=== PATIENT | female | born 1975 | race Caucasian/White ===

== ENCOUNTER 2022-04-03 10:58 | Emergency (ER) | payer OTHER, SELFPAY ==
--- NOTE | ~2022-04-03 | XR_ITS ---
EXAMINATION: XR chest 2V CLINICAL INFORMATION: Shortness of breath COMPARISON: No prior chest x-ray available in our system for comparison at the time of this dictation. TECHNIQUE: XR chest 2V Lungs and Nivia: Both lungs are clear. Pleura: Normal. Costophrenic angles are sharp. No pneumothorax. Heart: The heart is normal in size. Mediastinum: The mediastinum is within normal limits.. Bones: Skeletal structures included are normal for patient's age. XR/XR chest 2V IMPRESSION: No radiographic evidence of acute cardiopulmonary disease.
[2022-04-03 11:05] VITALS: BP 194/100; PULSE 141; RESP 18; TEMP 36.5; O2SAT 97; BMI 39.8
--- NOTE | 2022-04-03 11:09 | ECG_ITS ---
Test Reason : difficuty breathing Blood Pressure : / mmHG Vent. Rate : 136 BPM Atrial Rate : 136 BPM P-R Int : 126 ms QRS Dur : 076 ms QT Int : 300 ms P-R-T Axes : 076 052 056 degrees QTc Int : 451 ms Sinus tachycardia Nonspecific ST abnormality Abnormal ECG No previous ECGs available Referred By: Sonja Ocampo Electronically Signed By:MARSHA WELLINGTON MD
--- NOTE | 2022-04-03 11:20 | ED_ITS ---
HPI - General Adult General Chief complaint: General Medical <ANTONIO Bustillo - Last Filed: 04/03/22 11:22> Stated complaint: diff breathing heart rate 140 <ANTONIO Bustillo - Last Filed: 04/03/22 11:22> Time Seen by Provider: 04/03/22 15:27 <ANTONIO Bustillo - Last Filed: 04/03/22 11:22> Source: patient <ANTONIO Mckeon - Last Filed: 04/03/22 16:43> Mode of arrival: ambulatory <ANTONIO Mckeon - Last Filed: 04/03/22 16:43> Limitations: no limitations <ANTONIO Mckeon Last Filed: 04/03/22 16:43> History of Present Illness HPI narrative: 46-year-old female who was recently diagnosed with COVID on 03/20/2022 who is presenting to the ER with at bedside after being sent from the Urgent Care with difficulty breathing and shortness of breath, dizziness with exertion along with being tachycardic and hypertensive. She reports that she went to the urgent care due to persistent shortness of breath/cough since she was diagnosed with COVID. Reports that she finished a Z-Soham and a course of steroids and she is also try Mucinex and no symptomatic relief. She was also diagnosed with high blood pressure a month and a half ago although did not start the blood pressure medication that her primary care provider prescribed to her. She also was noted to be tachycardic in the Urgent Care therefore they were concerned for possible blood clot. Patient denies any dizziness at this time, neck pain/stiffness, sputum production, chest pain, orthopnea, palpitations, paresthesias, nausea/vomiting/diarrhea, abdominal pain, lower extremity edema or calf tenderness or any other symptoms complaints or concerns at this time. <ANTONIO Mckeon - Last Filed: 04/03/22 16:43> MD complaint: Persistent cough with shortness of breath since 03/20/2022 <ANTONIO Mckeon - Last Filed: 04/03/22 16:43> Onset (ago): week(s) (2) <ANTONIO Mckeon Last Filed: 04/03/22 16:43> Related Data Home medications: Previous Rx's Medication Instructions Recorded albuterol sulfate 90 mcg/actuation 1 inh inhalation QID PRN shortness 02/02/22 aerosol inhaler (Ventolin HFA) of breath or wheezing 30 days #8.5 grams lisinopril 10 mg tablet 10 mg PO DAILY 30 days #30 tabs 02/02/22 triamcinolone acetonide 0.5 % 1 appl topical BID 14 days #45 02/02/22 topical cream grams codeine 10 mg-guaifenesin 100 mg/5 5 ml PO Q6H PRN cold symptoms #120 04/03/22 mL oral liquid (Guaifenesin AC) mL prednisone 20 mg tablet 40 mg PO DAILY inflammation 5 days 04/03/22 #10 tabs <ANTONIO Bustillo - Last Filed: 04/03/22 11:22> Allergies/adverse reactions: Allergies Allergy/AdvReac Type Severity Reaction Status Date / Time No Known Allergies Allergy Unknown Verified 02/02/22 14:18 <ANTONIO Bustillo - Last Filed: 04/03/22 11:22> Review of Systems Review of Systems: Constitutional : No Weight loss, No Fever, No Chills, No Night Sweats, No Fatigue, No Malaise ENT/Mouth : No Hearing loss, No Ear Pain, No Nasal Congestion, No Sinus Pain, No Hoarseness, No sore throat, No Rhinorrhea, No Swallowing Difficulty Eyes: No Eye Pain, No Swelling, No Redness, No Foreign Body, No Discharge, No Vision Changes Cardiovascular : No Chest Pain, + SOB, No Dyspnea on Exertion, No Orthopnea, No Edema, No Palpitations Respiratory : + Cough, No Sputum, No Wheezing, No Smoke Exposure, No Dyspnea Gastrointestinal : No Nausea, No Vomiting, No Diarrhea, No Constipation, No abdominal Pain, No Hematochezia, No Melena Genitourinary : no irregular bleeding, No Dysuria, No Urinary Frequency, No Hematuria, No Urinary Incontinence, No Urgency, No Flank Pain, No Urinary Flow Changes, No Hesitancy Musculoskeletal : No joint pain, No Myalgias, No Joint Swelling Skin : No Skin Lesions, No rash Neuro : No Weakness, No Numbness, No Paresthesias, No Loss of Consciousness, No Dizziness, No Headache Psych : No Anxiety/Panic, No Depression, No SI/HI/AH/VH, No Social Issues, Heme/Lymph: No Bruising, No Bleeding,No Lymphadenopathy Endocrine : No Polyuria, No Polydipsia, No Temperature Intolerance <ANTONIO Mckeon Last Filed: 04/03/22 16:43> Yes all other systems are reviewed and are negative <ANTONIO Mckeon - Last Filed: 04/03/22 16:43> [facility] Past Medical History Attestation statement: The following information was validated with the patient. <ANTONIO Mckeon - Last Filed: 04/03/22 16:43> Source: old records reviewed and nursing notes reviewed <ANTONIO Mckeon - Last Filed: 04/03/22 16:43> Social History Social History: Social History Patient Tobacco Use Status: Never used Tobacco e-Cigarette/Vaping Use: Never Used Second Hand Smoke Exposure: No Advance Directives: No Advance Directives Information Provided: Yes Current occupational status: employed Current occupational exposures/hazards: No Cognitive needs: No Hearing needs: No Vision needs: No <ANTONIO Bustillo - Last Filed: 04/03/22 11:22> Physical Exam ED Vital Signs: Vital Signs - 24 hr 04/03/22 11:05 04/03/22 16:30 Temperature 97.7 F Pulse Rate 141 H 108 H Respiratory Rate 18 17 Blood Pressure 194/100 H 155/86 H Pulse Oximetry 97 98 Oxygen Delivery Method Room Air Room Air BMI result Body Mass Index 39.8 <ANTONIO Bustillo - Last Filed: 04/03/22 11:22> Vital Signs - 24 hr 04/03/22 11:05 04/03/22 16:30 Temperature 97.7 F Pulse Rate 141 H 108 H Respiratory Rate 18 17 Blood Pressure 194/100 H 155/86 H Pulse Oximetry 97 98 Oxygen Delivery Method Room Air Room Air BMI result Body Mass Index 39.8 vital signs have been reviewed as normal and appeared to be correct. Blood pressure 194/101. Heart rate 141 Respiration rate normal. Temperature normal. Oxygen saturation normal. <ANTONIO Mckeon Last Filed: 04/03/22 16:43> Appearance: Alert. Oriented X3. No acute distress. Head: Normal external exam. Normocephalic. Atraumatic. Eyes: PERRLA. EOMI. Conjunctiva and sclera normal. Eyelids normal. ENT: EAC normal. TM's Normal. Pharynx normal. Uvula midline. Moist mucous membr anes. No lesions/ulcerations or masses noted on the tongue. Normal voice. No trismus noted. No drooling noted. No muffled voice noted. Neck: Normal inspection. Neck supple. FROM. No adenopathy. Thyroid Normal. No tracheal deviation noted. No crepitus is noted. No meningeal signs. No neck mass noted. No signs of trauma noted. CVS: Normal heart rate and rhythm. Heart sound normal. Pulses normal throughout. No murmurs/rales/gallops. Respiratory: No respiratory distress. Painless inspiration. Breath sounds normal. No wheezes/rales/rhonchi noted. Chest nontender. No crepitus is noted. No signs of trauma noted. No accessory muscle usage noted or decreased air movement noted. No signs of trauma. Abdomen: Soft and nontender. Bowel sounds normal in all 4 quadrants. No distention noted. No organomegaly noted. No visible injury noted. Back: Full range of motion noted. Skin: Skin warm and dry. Normal skin color. Normal skin turgor. No rashes/lesions/lacerations noted. Extremities: No lower extremity edema. No calf tenderness is noted. Extremities exhibit normal range of motion and nontender. Neuro: Oriented X 3. No motor deficit. No sensory deficit. Reflexes normal. Normal steady gait. No focal neuro deficits noted. CN's II-XII intact bilaterally? Vascular: + radial pulses/+ 2 distal pedal pulses/+2 dorsalis pedis b/l. Normal cap refill. No cyanosis noted to upper extremity nails and lower extremity toes nails. <ANTONIO Mckeon - Last Filed: 04/03/22 16:43> Course Course Course Narrative: RME - 46 yo female with hx COVID dx 03/20 presents to the ER from Urgent Care w/ difficulty breathing and SOB, dizziness with exertion. Tachycardic and hypertensive, SPO2 97% in triage. Will need to r/o PE - DDIMER, CXR, EKG and labs ordered. <ANTONIO Bustillo - Last Filed: 04/03/22 11:22> Reevaluation(s) Reevaluation #1: 46-year-old female who was recently diagnosed with COVID on 03/20/2022 who is presenting to the ER with at bedside after being sent from the Urgent Care with difficulty breathing and shortness of breath, dizziness with exertion along with being tachycardic and hypertensive. She reports that she went to the urgent care due to persistent shortness of breath/cough since she was diagnosed with COVID. Reports that she finished a Z-Soham and a course of steroids and she is also try Mucinex and no symptomatic relief. She was also diagnosed with high blood pressure a month and a half ago although did not start the blood pressure medication that her primary care provider prescribed to her. She also was noted to be tachycardic in the Urgent Care therefore they were concerned for possible blood clot. Labs obtained patient with leukocytosis of 14,000. Platelet count 832089. Random glucose 297. Total protein 8.1. Otherwise all other labs including D- dimer troponin negative. COVID negative. Chest x-ray within normal limits. EKG is sinus tachycardia with ventricular rate of [address] abnormalities no acute ischemic change are noted. No prior EKGs to compare to at this time. Therefore patient does not have any evidence of a PE or DVT due to negative D- dimer and no lower extremity edema or calf tenderness. Not consistent with ACS as patient denies any chest pain and her EKG and cardiac enzymes are normal. Her tachycardic has improved it is now 108. I gave her albuterol inhaler with a spacer and she was educated on proper usage. Will DC home with some cough medicine a course of steroids for possible bronchitis from the COVID and ins tructions return if any new worsening symptoms follow up with primary care provider and to start taking her blood pressure medication as prescribed. Patient understands agrees with this plan. <ANTONIO Mckeon - Last Filed: 04/03/22 16:43> Time: 16:42 <ANTONIO Mckeon - Last Filed: 04/03/22 16:43> Medications Administered Discontinued Medications Generic Name Dose Route Start Last Admin Trade Name Freq PRN Reason Stop Dose Admin Albuterol Sulfate 2 puff 04/03/22 15:34 04/03/22 16:11 Albuterol Sulfate 90 Mcg 8 Gm Inhaler INHALE 04/03/22 15:35 2 puff ONCE ONE Administration <ANTONIO Bustillo - Last Filed: 04/03/22 11:22> Medications Administered Discontinued Medications Generic Name Dose Route Start Last Admin Trade Name Linda PRN Reason Stop Dose Admin Albuterol Sulfate 2 puff 04/03/22 15:34 04/03/22 16:11 Albuterol Sulfate 90 Mcg 8 Gm Inhaler INHALE 04/03/22 15:35 2 puff ONCE ONE Administration <ANTONIO Mckeon - Last Filed: 04/03/22 16:43> Medical Decision Making Lab Data MDM Lab Attestation statement: I reviewed the patient's lab results. <ANTONIO Mckeon - Last Filed: 04/03/22 16:43> Result Diagrams: 04/03/22 11:28 04/03/22 11:28 <ANTONIO Bustillo - Last Filed: 04/03/22 11:22> Labs: Lab Results 04/03/22 04/03/22 04/03/22 Range/Units 11:28 11:28 11:28 WBC 14.4 H (4.8-10.8) X10*3/uL RBC 5.23 (4.20-5.50) X10*6/uL Hgb 14.5 (12.0-16.0) g/dl Hct 44.0 (37.0-47.0) % MCV 84.1 (80.0-98.0) fL MCH 27.7 (27.0-33.0) pg MCHC 33.0 (31.0-35.0) g/dl RDW 12.4 (11.0-16.0) % Plt Count 409 H (160-400) X10*3/uL MPV 9.4 (9.4-12.3) fL Immature Gran % (Auto) 1.1 H (0.0-0.4) % Neut % (Auto) 83.5 H (45-73) % Lymph % (Auto) 12.2 L (20-40) % Wetzel % (Auto) 2.9 (2-11) % Eos % (Auto) 0.0 (0-4) % Baso % (Auto) 0.3 (0-2) % Lymph # (Auto) 1.8 (1.2-4.9) X10*3/uL Wetzel # (Auto) 0.4 (0.1-1.2) X10*3/uL Eos # (Auto) 0.0 (0.0-0.4) X10*3/uL Baso # (Auto) 0.0 (0.0-0.2) X10*3/uL Abs Immat Gran (auto) 0.16 H (0.00-0.03) X10*3/uL Absolute Neuts (auto) 12.0 H (2.0-8.3) x10*3/uL Absolute Nucleated RBC 0.000 (0.0-0.012) X10*3/uL Nucleated RBC % (auto) 0.0 (0.0-0.2) /100WBC PT 10.6 (10.0-13.1) SEC INR 0.9 (0.9-1.1) APTT 32.6 (26.0-36.4) SEC D-Dimer High Sensitivty < 150 NG/ML Sodium 137 (135-145) mmol/L Potassium 4.7 (3.3-5.1) mmol/L Chloride 99 (96-108) mmol/L Carbon Dioxide 26 (22-29) mmol/L Anion Gap 17 (12-20) BUN 12 (9-16) mg/dL Creatinine 0.80 (0.5-1.4) mg/dL Estim Creat Clear Calc 101.2 Estimated GFR > 60 Random Glucose 297 H (60-115) mg/dL Calcium 9.7 (8.4-10.2) mg/dL Magnesium 1.6 (1.6-2.6) mg/dL Total Bilirubin 0.4 (0.0-1.0) mg/dL Direct Bilirubin < 0.2 (0.0-0.5) mg/dL AST 16 (5-31) U/L ALT 23 (0-31) U/L Alkaline Phosphatase 62 (39-117) U/L Troponin I High Sens (<3.5-17.0) ng/L Total Protein 8.1 H (6.5-8.0) g/dL Albumin 4.6 (3.5-5.0) g/dL COVID-19 (JESSICA) (Negative) COVID-19 Clin Com 04/03/22 04/03/22 Range/Units 11:28 11:28 WBC (4.8-10.8) X10*3/uL RBC (4.20-5.50) X10*6/uL Hgb (12.0-16.0) g/dl Hct (37.0-47.0) % MCV (80.0-98.0) fL MCH (27.0-33.0) pg MCHC (31.0-35.0) g/dl RDW (11.0-16.0) % Plt Count (160-400) X10*3/uL MPV (9.4-12.3) fL Immature Gran % (Auto) (0.0-0.4) % Neut % (Auto) (45-73) % Lymph % (Auto) (20-40) % Wetzel % (Auto) (2-11) % Eos % (Auto) (0-4) % Baso % (Auto) (0-2) % Lymph # (Auto) (1.2-4.9) X10*3/uL Wetzel # (Auto) (0.1-1.2) X10*3/uL Eos # (Auto) (0.0-0.4) X10*3/uL Baso # (Auto) (0.0-0.2) X10*3/uL Abs Immat Gran (auto) (0.00-0.03) X10*3/uL Absolute Neuts (auto) (2.0-8.3) x10*3/uL Absolute Nucleated RBC (0.0-0.012) X10*3/uL Nucleated RBC % (auto) (0.0-0.2) /100WBC PT (10.0-13.1) SEC INR (0.9-1.1) APTT (26.0-36.4) SEC D-Dimer High Sensitivty NG/ML Sodium (135-145) mmol/L Potassium (3.3-5.1) mmol/L Chloride (96-108) mmol/L Carbon Dioxide (22-29) mmol/L Anion Gap (12-20) BUN (9-16) mg/dL Creatinine (0.5-1.4) mg/dL Estim Creat Clear Calc Estimated GFR Random Glucose (60-115) mg/dL Calcium (8.4-10.2) mg/dL Magnesium (1.6-2.6) mg/dL Total Bilirubin (0.0-1.0) mg/dL Direct Bilirubin (0.0-0.5) mg/dL AST (5-31) U/L ALT (0-31) U/L Alkaline Phosphatase (39-117) U/L Troponin I High Sens < 3.5 (<3.5-17.0) ng/L Total Protein (6.5-8.0) g/dL Albumin (3.5-5.0) g/dL COVID-19 (JESSICA) Negative (Negative) COVID-19 Clin Com See Note <ANTONIO Bustillo - Last Filed: 04/03/22 11:22> Lab Results 04/03/22 04/03/22 04/03/22 Range/Units 11:28 11:28 11:28 WBC 14.4 H (4.8-10.8) X10*3/uL RBC 5.23 (4.20-5.50) X10*6/uL Hgb 14.5 (12.0-16.0) g/dl Hct 44.0 (37.0-47.0) % MCV 84.1 (80.0-98.0) fL MCH 27.7 (27.0-33.0) pg MCHC 33.0 (31.0-35.0) g/dl RDW 12.4 (11.0-16.0) % Plt Count 409 H (160-400) X10*3/uL MPV 9.4 (9.4-12.3) fL Immature Gran % (Auto) 1.1 H (0.0-0.4) % Neut % (Auto) 83.5 H (45-73) % Lymph % (Auto) 12.2 L (20-40) % Wetzel % (Auto) 2.9 (2-11) % Eos % (Auto) 0.0 (0-4) % Baso % (Auto) 0.3 (0-2) % Lymph # (Auto) 1.8 (1.2-4.9) X10*3/uL Wetzel # (Auto) 0.4 (0.1-1.2) X10*3/uL Eos # (Auto) 0.0 (0.0-0.4) X10*3/uL Baso # (Auto) 0.0 (0.0-0.2) X10*3/uL Abs Immat Gran (auto) 0.16 H (0.00-0.03) X10*3/uL Absolute Neuts (auto) 12.0 H (2.0-8.3) x10*3/uL Absolute Nucleated RBC 0.000 (0.0-0.012) X10*3/uL Nucleated RBC % (auto) 0.0 (0.0-0.2) /100WBC PT 10.6 (10.0-13.1) SEC INR 0.9 (0.9-1.1) APTT 32.6 (26.0-36.4) SEC D-Dimer High Sensitivty < 150 NG/ML Sodium 137 (135-145) mmol/L Potassium 4.7 (3.3-5.1) mmol/L Chloride 99 (96-108) mmol/L Carbon Dioxide 26 (22-29) mmol/L Anion Gap 17 (12-20) BUN 12 (9-16) mg/dL Creatinine 0.80 (0.5-1.4) mg/dL Estim Creat Clear Calc 101.2 Estimated GFR > 60 Random Glucose 297 H (60-115) mg/dL Calcium 9.7 (8.4-10.2) mg/dL Magnesium 1.6 (1.6-2.6) mg/dL Total Bilirubin 0.4 (0.0-1.0) mg/dL Direct Bilirubin < 0.2 (0.0-0.5) mg/dL AST 16 (5-31) U/L ALT 23 (0-31) U/L Alkaline Phosphatase 62 (39-117) U/L Troponin I High Sens (<3.5-17.0) ng/L Total Protein 8.1 H (6.5-8.0) g/dL Albumin 4.6 (3.5-5.0) g/dL COVID-19 (JESSICA) (Negative) COVID-19 Clin Com 04/03/22 04/03/22 Range/Units 11:28 11:28 WBC (4.8-10.8) X10*3/uL RBC (4.20-5.50) X10*6/uL Hgb (12.0-16.0) g/dl Hct (37.0-47.0) % MCV (80.0-98.0) fL MCH (27.0-33.0) pg MCHC (31.0-35.0) g/dl RDW (11.0-16.0) % Plt Count (160-400) X10*3/uL MPV (9.4-12.3) fL Immature Gran % (Auto) (0.0-0.4) % Neut % (Auto) (45-73) % Lymph % (Auto) (20-40) % Wetzel % (Auto) (2-11) % Eos % (Auto) (0-4) % Baso % (Auto) (0-2) % Lymph # (Auto) (1.2-4.9) X10*3/uL Wetzel # (Auto) (0.1-1.2) X10*3/uL Eos # (Auto) (0.0-0.4) X10*3/uL Baso # (Auto) (0.0-0.2) X10*3/uL Abs Immat Gran (auto) (0.00-0.03) X10*3/uL Absolute Neuts (auto) (2.0-8.3) x10*3/uL Absolute Nucleated RBC (0.0-0.012) X10*3/uL Nucleated RBC % (auto) (0.0-0.2) /100WBC PT (10.0-13.1) SEC INR (0.9-1.1) APTT (26.0-36.4) SEC D-Dimer High Sensitivty NG/ML Sodium (135-145) mmol/L Potassium (3.3-5.1) mmol/L Chloride (96-108) mmol/L Carbon Dioxide (22-29) mmol/L Anion Gap (12-20) BUN (9-16) mg/dL Creatinine (0.5-1.4) mg/dL Estim Creat Clear Calc Estimated GFR Random Glucose (60-115) mg/dL Calcium (8.4-10.2) mg/dL Magnesium (1.6-2.6) mg/dL Total Bilirubin (0.0-1.0) mg/dL Direct Bilirubin (0.0-0.5) mg/dL AST (5-31) U/L ALT (0-31) U/L Alkaline Phosphatase (39-117) U/L Troponin I High Sens < 3.5 (<3.5-17.0) ng/L Total Protein (6.5-8.0) g/dL Albumin (3.5-5.0) g/dL COVID-19 (JESSICA) Negative (Negative) COVID-19 Clin Com See Note <ANTONIO Mckeon - Last Filed: 04/03/22 16:43> Independent Interpretation I performed an independent interpretation of an: EKG (Sinus tachycardia ventricular [address] abnormalities no acute ischemic change are noted. No prior EKGs to compare to at this time.) and Plain X-Ray (I reviewed the x-ray results with the patient and at bed) <ANTONIO Mckeon - Last Filed: 04/03/22 16:43> Radiology Impression Discussion of test interpretation with radiology: I have reviewed the radiologist's reading. <ANTONIO Mckeon - Last Filed: 04/03/22 16:43> Radiologist Impression: EXAMINATION: XR chest 2V CLINICAL INFORMATION: Shortness of breath COMPARISON: No prior chest x-ray available in our system for comparison at the time of this dictation.? TECHNIQUE: XR chest 2V Lungs and Nivia: Both lungs are clear. Pleura: Normal. Costophrenic angles are sharp. No pneumothorax. Heart: The heart is normal in size. Mediastinum: The mediastinum is within normal limits.. Bones: Skeletal structures included are normal for patient's age. XR/XR chest 2V IMPRESSION: No radiographic evidence of acute cardiopulmonary disease. <ANTONIO Mckeon Last Filed: 04/03/22 16:43> Independent Historian Clinical information obtained from an independent historian. History obtained from or confirmed by: Spouse <ANTONIO Mckeon Last Filed: 04/03/22 16:43> Chronic Conditions Patient?s care impacted by: Hypertension <ANTONIO Mckeon Last Filed: 04/03/22 16:43> Critical Care Time Critical Care Time Critical Care Time: Yes <ANTONIO Mckeon - Last Filed: 04/03/22 16:43> Total Critical Care Time: 60 <ANTONIO Mckeon - Last Filed: 04/03/22 16:43> Attestation: I personally attest to this time spent taking care of the patient <ANTONIO Mckeon - Last Filed: 04/03/22 16:43> Discharge Plan Discharge Clinical Impression: Bronchitis <ANTONIO Bustillo - Last Filed: 04/03/22 11:22> Patient Disposition: Home, Self-Care <ANTONIO Bustillo - Last Filed: 04/03/22 11:22> Instructions: Acute Bronchitis (ED) <ANTONIO Bustillo - Last Filed: 04/03/22 11:22> Prescriptions: New prednisone 20 mg tablet 40 mg PO DAILY 5 Days Qty: 10 0RF codeine-guaifenesin [Guaifenesin AC] 10-100 mg/5 mL liquid 5 ml PO Q6H PRN (Reason: cold symptoms) Qty: 120 0RF No Action triamcinolone acetonide 0.5 % cream 1 appl topical BID 14 Days Qty: 45 1RF lisinopril 10 mg tablet 10 mg PO DAILY 30 Days Qty: 30 2RF albuterol sulfate [Ventolin HFA] 90 mcg/actuation HFA aerosol inhaler 1 inh inhalation QID PRN (Reason: shortness of breath or wheezing) 30 Days Qty: 8.5 1RF <ANTONIO Bustillo - Last Filed: 04/03/22 11:22> Referrals: Pancho Ramos MD [Primary Care Provider] - 2 days <ANTONIO Bustillo - Last Filed: 04/03/22 11:22> Stand Alone Forms: Work/School Release <ANTONIO Bustillo - Last Filed: 04/03/22 11:22>
[2022-04-03 11:34] LABS: MANUAL DIFF FLAG NO
[2022-04-03 11:35] LABS: Basophils Percent Auto 0.3 % (0-2); Hemoglobin 14.5 g/dl (12.0-16.0); Imm Gran Abs Auto 0.16 X10*3/uL (0.00-0.03); Imm Gran Pct Auto 1.1 % (0.0-0.4); Lymphocytes Absolute Auto 1.8 X10*3/uL (1.2-4.9); Lymphocytes Percent Auto 12.2 % (20-40); Mean Corpuscular Hemoglobin 27.7 pg (27.0-33.0); Mean Corpuscular Volume 84.1 fL (80.0-98.0); Mean Platelet Volume 9.4 fL (9.4-12.3); Monocytes Absolute Auto 0.4 X10*3/uL (0.1-1.2); Monocytes Percent Auto 2.9 % (2-11); Neutrophils Percent Auto 83.5 % (45-73); Platelet Count 409 X10*3/uL (160-400); Red Blood Count 5.23 X10*6/uL (4.20-5.50); Red Cell Distribution Width 12.4 % (11.0-16.0); White Blood Count 14.4 X10*3/uL (4.8-10.8)
[2022-04-03 11:41] LABS: INTERNATIONAL NORM RATIO 0.9 (0.9-1.1); Prothrombin Time 10.6 SEC (10.0-13.1)
[2022-04-03 11:43] LABS: Partial Thromboplastin Time 32.6 SEC (26.0-36.4)
[2022-04-03 11:47] LABS: D Dimer High Sensitivity < 150 NG/ML
[2022-04-03 11:50] LABS: Alanine Aminotransferase 23 U/L (0-31); Albumin Level 4.6 g/dL (3.5-5.0); Alkaline Phosphatase 62 U/L (39-117); Anion Gap 17 (12-20); Aspartate Amino Transferase 16 U/L (5-31); Bilirubin Direct < 0.2 mg/dL (0.0-0.5); Bilirubin Total 0.4 mg/dL (0.0-1.0); Blood Urea Nitrogen 12 mg/dL (9-16); Calcium 9.7 mg/dL (8.4-10.2); Carbon Dioxide 26 mmol/L (22-29); Chloride 99 mmol/L (96-108); Creatinine Clr Calc Pharmacy 101.2; Estimated Glomerular Filt Rate > 60; Glucose Random 297 mg/dL (60-115); Magnesium 1.6 mg/dL (1.6-2.6); Potassium 4.7 mmol/L (3.3-5.1); Sodium 137 mmol/L (135-145); Total Protein 8.1 g/dL (6.5-8.0)
[2022-04-03 11:53] LABS: COVID-19 Test Negative (Negative); IDNOW Serial# 55D5AD1C
[2022-04-03 11:56] LABS: Troponin-I High Sensitivity < 3.5 ng/L (<3.5-17.0)
[2022-04-03] MEDS: Albuterol Sulfate 90 MCG 8 GM INHALER 2 PUFF INHALE (16:11)
[2022-04-03 16:30] VITALS: BP 155/86; PULSE 108; RESP 17; O2SAT 98
== END 2022-04-03 16:43 | disposition home or self-care (01) ==
PROVIDERS: Physician Assistant; Emergency Provider Emergency Medicine; PCP Family Medicine
DX: J40 Bronchitis, not specified as acute or chronic (principal); R06.02 Shortness of breath; Z20.822 Contact with and (suspected) exposure to COVID-19; I10 Essential (primary) hypertension; R00.0 Tachycardia, unspecified; Z79.899 Other long term (current) drug therapy
CPT/HCPCS: 36415; 71046; 80048; 80076; 83735; 84484; 85025; 85379; 85610; 85730; 87635; 93005; 99284

== ENCOUNTER 2022-06-03 08:25 | Outpatient (REF) | payer OTHER, SELFPAY ==
[2022-06-03 11:07] LABS: MANUAL DIFF FLAG NO
[2022-06-03 11:17] LABS: Basophils Percent Auto 0.4 % (0-2); Eosinophils Absolute Auto 0.4 X10*3/uL (0.0-0.4); Eosinophils Percent Auto 3.3 % (0-4); Hematocrit 41.3 % (37.0-47.0); Hemoglobin 13.4 g/dl (12.0-16.0); Imm Gran Abs Auto 0.09 X10*3/uL (0.00-0.03); Imm Gran Pct Auto 0.9 % (0.0-0.4); Lymphocytes Absolute Auto 2.6 X10*3/uL (1.2-4.9); Lymphocytes Percent Auto 24.5 % (20-40); Mean Corpuscular HGB Conc 32.4 g/dl (31.0-35.0); Mean Corpuscular Hemoglobin 28.8 pg (27.0-33.0); Mean Corpuscular Volume 88.6 fL (80.0-98.0); Mean Platelet Volume 10.2 fL (9.4-12.3); Monocytes Absolute Auto 0.6 X10*3/uL (0.1-1.2); Monocytes Percent Auto 5.3 % (2-11); Neutrophils Absolute Auto 6.9 x10*3/uL (2.0-8.3); Neutrophils Percent Auto 65.6 % (45-73); Platelet Count 323 X10*3/uL (160-400); Red Blood Count 4.66 X10*6/uL (4.20-5.50); Red Cell Distribution Width 12.4 % (11.0-16.0); White Blood Count 10.5 X10*3/uL (4.8-10.8)
[2022-06-03 11:27] LABS: Appearance Urine Clear; Color Urine Yellow; Glucose Urine UA Negative (Negative); Leukocyte Esterase Urine Negative (Negative); Nitrite Urine Negative (Negative); PH 7.5 (5.0-9.0); Urine Blood Negative (Negative); Urine Ketones Negative (Negative); Urine Protein Negative (Neg-Trace)
[2022-06-03 12:19] LABS: Alanine Aminotransferase 18 U/L (0-31); Alkaline Phosphatase 55 U/L (39-117); Anion Gap 13 (12-20); Aspartate Amino Transferase 13 U/L (5-31); Bilirubin Total 0.4 mg/dL (0.0-1.0); Blood Urea Nitrogen 12 mg/dL (9-16); Calcium 9.2 mg/dL (8.4-10.2); Carbon Dioxide 28 mmol/L (22-29); Chloride 101 mmol/L (96-108); Cholesterol 231 mg/dL; Estimated Glomerular Filt Rate > 60; Glucose Fasting 189 mg/dL (60-99); HDL Cholesterol 48 mg/dL; Potassium 4.3 mmol/L (3.3-5.1); Sodium 138 mmol/L (135-145); Total Protein 6.9 g/dL (6.5-8.0)
[2022-06-03 16:01] LABS: LDL Cholesterol Calculated 158 mg/dl; Triglycerides 128 mg/dL
[2022-06-03 17:55] LABS: Creatinine Urine 119.72 mg/dL; Microalbum/Creatinine Ratio Ur 11.6 ug/mg cr
== END 2022-06-03 08:26 | disposition home or self-care (01) ==
LOC: HO.HMGCLDS 08:25
PROVIDERS: PCP Family Medicine; Visit Provider Family Medicine
DX: Z00.00 Encounter for general adult medical examination without abnormal findings (principal); I10 Essential (primary) hypertension
CPT/HCPCS: 36415; 80053; 80061; 81003; 82043; 84443; 85025

== ENCOUNTER 2022-07-17 12:20 | Outpatient (REF) | payer OTHER, SELFPAY ==
[2022-07-17 13:19] LABS: Estimated Average Glucose 180 mg/dL; Hemoglobin A1c % 7.9 %
== END 2022-07-17 12:21 | disposition home or self-care (01) ==
LOC: HO.LAB 12:20
PROVIDERS: PCP Family Medicine; Visit Provider Family Medicine
DX: R73.01 Impaired fasting glucose (principal)
CPT/HCPCS: 36415; 83036

== ENCOUNTER 2022-10-12 08:47 | Outpatient (AMB) | payer OTHER, SELFPAY ==
[2022-10-12 08:51] VITALS: BP 122/70; PULSE 100; O2SAT 99; BMI 40.2
--- NOTE | 2022-10-12 08:51 | MHC.PC.OV ---
Vital Signs 10/12/22 08:51 Height 5 ft 3 in Weight 227 lb BMI 40.2 BP 122/70 Blood Pressure Location Lt brachial Position Sitting Pulse 100 Pulse Source Pulse Oximeter Pulse Oximetry (%) 99 Oxygen Delivery Method Room Air Intake Visit Reasons: f/u diabetes Intake Note: Patient is here to follow up on diabetes, and non stop chronic cough, and right foot cramping. Allergies No Known Allergies Allergy (Unknown, Verified 10/12/22 08:54) Tobacco use date assessed: 10/12/22 Dental Screening Dental Screen Date: 10/12/22 Did you have a dental visit in the last 12 months?: Yes Did you have a dental problem in the last 6 months where you did not have access to dental care?: No Was dental information given to patient?: Patient declined HPI f/u diabetes HPI Details 46 y/o female presents to f/u diabetes. Had started her on metformin. Made referral to nurse navigator for diabetic teaching. A1c today 10/12/22 is 7.9%, which is unchanged from prior. She reports she continues to take metformin 500mg daily. She notes she could improve her diet. She reports an ongoing cough. Chest x-ray in March had been fine. Blood pressure today is 122/70. She is on lisinopril 10mg daily. HPI Comments History of Present Illness Details Documentation assistance for Pancho Ramos MD, was provided by Esteban Moncada, Marketing Programs Specialist on 10/12/2022 9:15 AM EST. I, Dr. Ramos, have read, observed, and verified documentation. [facility] Surgical History No pertinent past surgical history Family History Mother Asthma Thyroid disorder Father Asthma Maternal Grandmother Asthma Diabetes mellitus Paternal Grandmother Diabetes mellitus Social History Household Members Other:: Patient has 1 son Housing: House Patient Tobacco Use Status: Never used Tobacco e-Cigarette/Vaping Use: Never Used Second Hand Smoke Exposure: No service: No Current occupational status: employed Current occupational exposures/hazards: No Cognitive needs: No Hearing needs: No Vision needs: No Questionnaire PHQ-9 Over the last 2 weeks, how often have you been bothered by any of the following problems? 1. Little interest or pleasure in doing things: not at all 2. Feeling down, depressed, or hopeless: not at all 3. Trouble falling or staying asleep, or sleeping too much: not at all 4. Feeling tired or having little energy: not at all 5. Poor appetite or overeating: not at all 6. Feeling bad about yourself - or that you are a failure or have let yourself or your family down: not at all 7. Trouble concentrating on things, such as reading the newspaper or watching television: not at all 8. Moving or speaking so slowly that other people could have noticed. Or the opposite - being so fidgety or restless that you have been moving around a lot more than usual: not at all 9. Thoughts that you would be better off or of hurting yourself in some way: not at all Total score: 0 Source: Developed by Drs. Jossue Gonzalez, Hitesh Retana and colleagues, with an educational stacie from [employer]. Thrive Questionnaire Date Thrive assessed: 02/02/22 LEIGH-7 AMB Questionnaire LEIGH-7 Date LEIGH - 7 assessed: 02/02/22 Feeling nervous, anxious, or on edge: 0 = Not at all Not being able to stop or control worryin = Not at all Worrying too much about different things: 0 = Not at all Trouble relaxin = Not at all Being so restless that it is hard to sit still: 0 = Not at all Becoming easily annoyed or irritable: 0 = Not at all Feeling afraid as if something awful might happen: 0 = Not at all Total LEIGH-7 score (0-4 normal; 5-9 mild; 10-14 moderate; 15-21 severe): 0 Source: Developed by Drs. Jossue Gonzalez, Hitesh Retana and colleagues, with an educational stacie from [employer]. Physical exam (Primary Care) Vital Signs: Last Vital Signs Pulse 100 10/12/22 08:51 BP 122/70 10/12/22 08:51 Pulse Ox 99 10/12/22 08:51 Oxygen Delivery Method Room Air 10/12/22 08:51 BMI result Body Mass Index 40.2 Tobacco/Smoking Status: Tobacco use Status Tobacco use date assessed 10/12/22 10/12/22 08:57 Patient Tobacco Use Status Never used Tobacco 10/12/22 08:57 e-Cigarette/Vaping Use Never Used 10/12/22 08:57 PHQ-9: PHQ-9 Score PHQ-9: Total score 0 10/12/22 09:04 Thrive Assessment: Date of Thrive Assessment Date Thrive assessed 02/02/22 10/12/22 08:57 Const Nutritional Appearance: obese Results AMB Hemoglobin A1c AMB Hemoglobin A1c 7.9 % Last Edit by Lissette Gant CMA on 10/12/22 09:23 Assessment and Plan Assessment & Plan (1) Diabetes: Code(s): E11.9 - Type 2 diabetes mellitus without complications Plan: A1cs still 7.9% and patient says she has been taking metformin consistently. Has not had her diabetic teaching yet. Will increase metformin and add glipizide Encouraged her to contact nurse navigator regarding diabetic teaching Will follow-up in 1 month (2) Cough: Code(s): R05.9 - Cough, unspecified Plan: Ongoing chronic cough Patient is on lisinopril. She decides the cough as a dry tickle Stop lisinopril and use losartan She has still not gotten a chest x-ray yet. If discontinuing lisinopril does not improve her cough, reminded her to get chest x-ray (3) Hypertension: Code(s): I10 - Essential (primary) hypertension Plan: Blood pressure was well controlled today. Goal is less than 140/90 However, she has a chronic cough which sounds suspiciously like a lisinopril cough. Switching lisinopril to losartan. Will follow-up in 1 month Orders: Orders AMB Hemoglobin A1c Today Z13.9 - Encounter for screening, unspecified Medications: New glipizide ER 2.5 mg PO QAM 30 tabs 2RF 30 days losartan 50 mg PO DAILY 30 tabs 2RF 30 days Changed From metformin 500 mg PO DAILY 30 days 30 tabs 2RF To metformin 500 mg PO BID 60 tabs 2RF 30 days Discontinued lisinopril Discontinued Reason: Doctor's Order 10 mg PO DAILY 30 tabs 0RF 30 days Coding Level of Care Code Est Pt Level 4 (37004) Diagnoses Diabetes E11.9 Cough R05.9 Hypertension I10
== END 2022-10-12 09:26 | disposition home or self-care (01) ==
PROVIDERS: PCP Family Medicine; Visit Provider Family Medicine
DX: E11.9 Type 2 diabetes mellitus without complications (principal); R05.9 Cough, unspecified; I10 Essential (primary) hypertension
CPT/HCPCS: 83036; 99214

== ENCOUNTER 2022-11-13 08:39 | Outpatient (AMB) | payer OTHER, SELFPAY ==
--- NOTE | 2022-11-13 08:57 | MHC.PC.OV ---
Vital Signs 11/13/22 08:58 Height 5 ft 3 in Weight 213 lb BMI 37.7 BP 130/80 Blood Pressure Location Lt brachial Position Sitting Respiration 13 Pulse 112 H Pulse Source Pulse Oximeter Temp 98.9 F Temp Source Temporal Artery Scan Pulse Oximetry (%) 98 Oxygen Delivery Method Room Air Intake Visit Reasons: F/up Diabetes, Med Change Intake Note: Patient is here to follow up with her diabetes and her medications. Patient reports she has concerns for her rapid heart rate described as, a heart beat in the center of her chest and beating really fast. Patient reports she is nervous about todays appointment as she has tried very hard with some lifestyle changes and she is hopeful for good results. Patient requests a refill on the triamcinolone cream. Patient reports she discussed med changes at her last appointment. This was due to a chronic dry cough and after switching medications, the cough is gone. Pneumatic Jacketer Required: No Accompanied by: Self / Same As Patient Allergies No Known Allergies Allergy (Unknown, Verified 11/13/22 09:05) Tobacco use date assessed: 10/12/22 Dental Screening Dental Screen Date: 11/13/22 Did you have a dental visit in the last 12 months?: Yes Did you have a dental problem in the last 6 months where you did not have access to dental care?: No Was dental information given to patient?: Patient has dentist HPI F/up Diabetes, Med Change HPI Details Patient?presents?to?follow-up?diabetes?and?hypertension Taking?metformin?and?glipizide?which?were?adjusted?at?last?visit,?without?problems Heart?rate?is?elevated?and?patient?notices?this?at?times.??No?chest?pain. Had?a?cough?and?switched?lisinopril?to?losartan.??Patient?says?cough?quickly?stopped. [facility] Surgical History No pertinent past surgical history Family History Mother Asthma Thyroid disorder Father Asthma Maternal Grandmother Asthma Diabetes mellitus Paternal Grandmother Diabetes mellitus Social History Household Members Other:: Patient has 1 son Housing: House Patient Tobacco Use Status: Never used Tobacco e-Cigarette/Vaping Use: Never Used Second Hand Smoke Exposure: No service: No Current occupational status: employed Current occupational exposures/hazards: No Cognitive needs: No Hearing needs: No Vision needs: No Questionnaire Thrive Questionnaire Date Thrive assessed: 02/02/22 LEIGH-7 AMB Questionnaire LEIGH-7 Date LEIGH - 7 assessed: 02/02/22 Source: Developed by Drs. Jossue Gonzalez, Michell Templeton, Hitesh Bledsoe and colleagues, with an educational stacie from [employer]. Review of Systems Const Denies chills, Denies fatigue, Denies fever(s), Denies headache(s) and Denies weakness ENT Denies dizziness and Denies headache(s) Card Denies chest pain, Denies lightheadedness, Denies dyspnea and Denies other (Palpitations) Resp Denies cough, Denies dyspnea, Denies wheezing and Denies other ( shortness of breath) Musc Denies numbness and Denies tingling Neuro Denies dizziness, Denies headache(s), Denies numbness, Denies tingling, Denies paresthesias and Denies weakness Psych Denies anxiety and Denies depression Endo Denies fatigue Aller/Immun Denies wheezing Physical exam (Primary Care) Vital Signs: Last Vital Signs Temp 98.9 F 11/13/22 08:58 Pulse 112 H 11/13/22 08:58 Resp 13 11/13/22 08:58 BP 130/80 11/13/22 08:58 Pulse Ox 98 11/13/22 08:58 Oxygen Delivery Method Room Air 11/13/22 08:58 BMI result Body Mass Index 37.7 Tobacco/Smoking Status: Tobacco use Status Tobacco use date assessed 10/12/22 11/13/22 09:02 Patient Tobacco Use Status Never used Tobacco 11/13/22 09:02 e-Cigarette/Vaping Use Never Used 11/13/22 09:02 Thrive Assessment: Date of Thrive Assessment Date Thrive assessed 02/02/22 11/13/22 09:02 Const General: no acute distress and well developed Nutritional Appearance: well nourished Orientation/consciousness: patient oriented x3 HENMT Head: Yes normocephalic and Yes atraumatic Eyes General: appearance normal, both eyes and all related structures Pupils: Equal, round and reactive pupils present EOM: EOMs intact bilaterally Resp Effort & Inspection: normal respiratory effort Auscultation: clear to auscultation bilaterally Cardio Rate: tachycardic Rhythm: regular rhythm Heart sounds: S1 normal heart sound present, S2 normal heart sound present, no gallops, no murmurs and no rubs Neuro General: patient oriented x3 and gait normal Cranial nerves: Yes Equal, round and reactive pupils present Psych Affect: normal affect Assessment and Plan Assessment & Plan (1) Diabetes: Code(s): E11.9 - Type 2 diabetes mellitus without complications Plan: A1c?a?month?ago?was?7.9%.??We?increased?metformin?and?added?glipizide. She?is?tolerating?this?regimen?well She?has?had?diabetic?teaching?with?the?nurse?navigator Patient?has?lost?about?14?lb?since?that?last?visit Continue?current?medication?regimen?and?continue?a?diabetic?diet?and?continue?weight?loss?and?exercise?as?tolerated. (2) Hypertension: Code(s): I10 - Essential (primary) hypertension Plan: Blood?pressure?is?a?little?higher?today. Had?discontinued?lisinopril?and?added?losartan. Will?increase?blood?pressure?control?but?since?she?also?has?tachycardia,?will?add?some?metoprolol (3) Tachycardia: Code(s): R00.0 - Tachycardia, unspecified Plan: Heart?rate?is?above?100. Patient?is?somewhat?anxious?but?heart?rate?did?not?get?below?100?with?relaxation EKG??sinus?tachycardia, normal?axis,?no?hypertrophy.??No?specific?ST-T-wave?changes. Will?add?some?metoprolol (4) Cough: Code(s): R05.9 - Cough, unspecified Plan: Had?switched?lisinopril?to?losartan?due?to?a?dry?cough?and?her?cough?quickly?resolved. Resolved Medications: New metoprolol succinate ER 25 mg PO DAILY 30 tabs 2RF 30 days Refilled triamcinolone acetonide 0.5% 1 appl topical BID 14 days 45 grams 1RF Coding Level of Care Code Est Pt Level 4 (32395) Diagnoses Diabetes E11.9 Hypertension I10 Tachycardia R00.0 Cough R05.9
[2022-11-13 08:58] VITALS: BP 130/80; PULSE 112; RESP 13; TEMP 37.2; O2SAT 98; BMI 37.7
== END 2022-11-13 10:41 | disposition home or self-care (01) ==
PROVIDERS: PCP Family Medicine; Visit Provider Family Medicine
DX: E11.9 Type 2 diabetes mellitus without complications (principal); I10 Essential (primary) hypertension; R00.0 Tachycardia, unspecified; R05.9 Cough, unspecified
CPT/HCPCS: 99214

== ENCOUNTER 2022-12-06 09:31 | Outpatient (REF) | payer OTHER, SELFPAY ==
[2022-12-09 04:58] LABS: HPV mRNA E6/E7 rflx Not Detected (Not Detected)
== END 2022-12-06 09:32 | disposition home or self-care (01) ==
LOC: HO.LNP 09:31
PROVIDERS: Visit Provider Advanced Practice Midwife
DX: Z01.419 Encounter for gynecological examination (general) (routine) without abnormal findings (principal); Z11.51 Encounter for screening for human papillomavirus (HPV)
CPT/HCPCS: 87624; 88142

== ENCOUNTER 2022-12-06 09:31 | Outpatient (AMB) | payer OTHER, SELFPAY ==
--- NOTE | 2022-12-06 09:32 | MHC.OFFVIS ---
Intake Vital Signs 12/06/22 09:34 Height 5 ft 3 in Weight 210 lb BMI 37.2 BP 130/70 Intake Visit Reasons: New patient Annual Intake Note: ? menopause Combustion Engineer Required: No Information Interpreted: non-clinical & clinical Forest Resource Specialist: Forest Resource Specialist Present (Mary MANCINI) Accompanied by: Self / Same As Patient Allergies No Known Allergies Allergy (Unknown, Verified 12/06/22 09:35) Medication List - Last Reconciled 12/06/22 by Jennifer Estrella CNM albuterol sulfate 90 mcg/actuation (Ventolin HFA) 1 inh inhalation QID PRN 30 days fluticasone propionate 110 mcg/actuation (Flovent HFA) 1 puff inhalation Q12H 30 days glipizide ER 2.5 mg PO QAM 30 days losartan 50 mg PO DAILY 30 days metformin 500 mg PO BID 30 days metoprolol succinate ER 25 mg PO DAILY 30 days omeprazole 20 mg PO DAILY 90 days triamcinolone acetonide 0.5% 1 appl topical BID 14 days Is last menstrual period known: No (? 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 Romero was here and she had a baby here. She said she was healthy and then in the last couple of years she had COVID twice and then this past year she got diagnosed with diabetes and hypertension. She did have gestational diabetes in her in the past. She is working very hard on trying to eat better and be more active and she lost 13 lb in her 1st month of efforts though it now it seems to have slowed down she goes on an elliptical every morning. She is but is not very sexually active and does note decreased libido. She has not had a period since about May or June and she thinks she is in early menopause. She is not really having hot flashes but she does get flushed every now and then but she is trying to have figure out if it is when her blood sugar might be little bit elevated. She is on medication for the diabetes and hypertension. She has no worries at all about STIs and declines testing and no abnormal discharge. She does have a family history of uterine cancer which originally was diagnosed as ovarian but the original cancer was uterine. [facility] Medical History (Updated 12/06/22 @ 10:51 by Jennifer Estrella CNM) Diabetes Hypertension Diabetes Surgical History No pertinent past surgical history Family History Mother Asthma Thyroid disorder Uterus cancer Father Asthma Maternal Grandmother Asthma Diabetes mellitus Paternal Grandmother Diabetes mellitus Social History (Updated 12/06/22 @ 09:39 by Mary Tejeda CMA) Household Members: Spouse Household Members Other:: son Housing: House Alcohol intake: current Alcohol intake frequency: holidays/special occasions only Patient Tobacco Use Status: Never used Tobacco e-Cigarette/Vaping Use: Never Used Second Hand Smoke Exposure: No service: No Current occupational status: employed 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: No Sexual orientation: Straight/Heterosexual Gender identity: Female Cognitive needs: No Hearing needs: No Vision needs: No Female Reproductive History Menstrual Total pregnancies: 1 Full term: 1 Number of Living Children: 1 Physical Exam Vital Signs: Last Vital Signs BP 130/70 12/06/22 09:34 BMI result Body Mass Index 37.2 Const General: healthy appearing, comfortable, no acute distress, well developed and alert Nutritional Appearance: average body habitus Orientation/consciousness: patient oriented x3 Limitations: no limitations HEENT Head: Yes normocephalic Neck Neck: Yes normal visual inspection Chest Chest palpation & inspection: normal inspection of the chest Breast/axilla inspection: normal inspection of the breasts and normal inspection of the axillae Breast/axilla palpation: normal palpation of the breasts and normal palpation of the axillae Resp Effort & Inspection: normal respiratory effort GI Inspection: Yes normal to inspection, No Abdominal wall edema and No distended Palpation (GI): Soft to palpation and nontender Other: Speculum exam within normal limits vagina pink and moist cervix is multiparous pink healthy tiny nabothian cysts barely friable with Pap smear normal appearing cervical mucus uterus is small midposition to anteverted mobile nontender adnexa not enlarged nontender good tone with Kegel General: Yes bladder normal to palpation External Female Exam: normal external appearance and normal appearance of the urethra Speculum Exam - Vagina: normal appearance of the vagina, normal palpation and normal vaginal discharge Speculum Exam - Cervix: normal appearance of the cervix, normal palpation and nontender Bimanual exam- vagina & uterus: normal bimanual exam, normal palpation, uterine size normal, bladder normal to palpation, consistency normal, normal palpation, uterine mobility normal, uterine shape normal, No Cervical tenderness present, non-tender and no cervical motion tenderness Bimanual Exam- Adnexa, other: normal adnexae, no masses, normal and No adnexal tenderness Neuro General: patient oriented x3 Assessment & Plan Assessment & Plan (1) Well woman exam with routine gynecological exam: Code(s): Z01.419 - Encounter for gynecological examination (general) (routine) without abnormal findings (2) Screening for cervical cancer: Code(s): Z12.4 - Encounter for screening for malignant neoplasm of cervix (3) Breast cancer screening: Code(s): Z12.39 - Encounter for other screening for malignant neoplasm of breast (4) Perimenopause: Code(s): N95.1 - Menopausal and female climacteric states (5) Hypertension: Code(s): I10 - Essential (primary) hypertension (6) Diabetes: Code(s): E11.9 - Type 2 diabetes mellitus without complications Plan -----Discussed in this visit the following: healthy balanced diet, regular and consistent exercise, getting recommended health screens, doing the best she can for her particular health concerns, kegel exercises, pap smear screening and followup recommendations, mammography screening and SBE, normal changes in cycles in her life stage--- .---Discussed normal changes that happen premenapausally, perimenapausally, and postmenopausally, and ways to handle them. Discussed the normal variation, and the range of experiences that women experience. Discussed nutrition, health, need for exercise, both weight-bearing and aerobic. Also discussed the normal changes that happen with vaginal mucosal thinning and sensitivity, and simple more natural ways of handling these challenges. She just had her mammogram on Sunday. She is seeing her primary care provider frequently for follow-up on the hypertension and diabetes and expect she will be getting a annual blood work whenever it is time for her annual physical. I have ordered a follicle stimulating hormone level that can be done with her next annual blood work and by then it may be close to a year of no menses. I reminded her to call if she ever did have unusual bleeding or pain or bloating. I did offer a pelvic ultrasound but there are no abnormal findings on her physical finding is and so it is not necessary but if she ever had any unusual symptoms just because of her family history week definitely would want to follow-up on them. I congratulated her on her excellent self-care as regards her diabetes and hypertension. RTC 1 year Orders: Orders Pap Smear Today Z01.419 - Encounter for gynecological examination (general) (routine) without abnormal findings Follicle Stimulating Hormone Today N95.1 - Menopausal and female climacteric states, Z01.419 - Encounter for gynecological examination (general) (routine) without abnormal findings Coding Level of Care Code New Pt Prev Care 40-64y(02452) Diagnoses Well woman exam with routine gynecological exam Z01.419 Screening for cervical cancer Z12.4 Breast cancer screening Z12.39 Perimenopause N95.1 Hypertension I10 Diabetes E11.9
[2022-12-06 09:34] VITALS: BP 130/70; BMI 37.2
== END 2022-12-06 10:52 | disposition home or self-care (01) ==
PROVIDERS: Visit Provider Advanced Practice Midwife
DX: Z01.419 Encounter for gynecological examination (general) (routine) without abnormal findings (principal); Z12.4 Encounter for screening for malignant neoplasm of cervix; Z12.39 Encounter for other screening for malignant neoplasm of breast; N95.1 Menopausal and female climacteric states; I10 Essential (primary) hypertension; E11.9 Type 2 diabetes mellitus without complications
CPT/HCPCS: 99386

== ENCOUNTER 2023-02-22 08:44 | Outpatient (AMB) | payer OTHER, SELFPAY ==
[2023-02-22 08:50] VITALS: BP 122/80; PULSE 90; RESP 13; O2SAT 96; BMI 37.2
--- NOTE | 2023-02-22 08:50 | A.OFFPC_ITS ---
Vital Signs 02/22/23 08:50 Height 5 ft 3 in Weight 210 lb BMI 37.2 BP 122/80 Blood Pressure Location Lt brachial Position Sitting Respiration 13 Pulse 90 Pulse Source Monitor Pulse Oximetry (%) 96 Oxygen Delivery Method Room Air Intake Visit Reasons: f/u diabetes, hypertension and tachycardia Intake Note: Patient is here to follow up for chronic conditions. Patient reports she has no questions or concerns at this time. [employer] Required: No Accompanied by: Self / Same As Patient Allergies No Known Allergies Allergy (Unknown, Verified 02/22/23 09:17) Tobacco use date assessed: 10/12/22 HPI f/u diabetes, hypertension and tachycardia HPI Details 47 y/o female presents to fu diabetes, h ypertension and tachycardia. Had switched lisinopril to losartan and cough had went away. Had also added some metoprolol due to tachycardia. Last A1c October 7.9%. Had increased metformin and added glipizide. A1c today 02/22/23 is 6.4%. Blood pressure today 122/80, 90p per her EKG. She reports she is tolerating metoprolol fine. She states she is up to date with her diabetic eye exam. [facility] Medical History Diabetes Hypertension Diabetes Surgical History No pertinent past surgical history Family History Mother Asthma Thyroid disorder Uterus cancer Father Asthma Maternal Grandmother Asthma Diabetes mellitus Paternal Grandmother Diabetes mellitus Social History Household Members: Spouse Household Members Other:: son Housing: House Alcohol intake: current Alcohol intake frequency: holidays/special occasions only Patient Tobacco Use Status: Never used Tobacco e-Cigarette/Vaping Use: Never Used Second Hand Smoke Exposure: No service: No Current occupational status: employed 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 Jossue Gonzalez, Michell Templeton, Hitesh Bledsoe and colleagues, with an educational stacie from [employer]. Review of Systems Const Denies chills, Denies fatigue, Denies fever(s), Denies headache(s) and Denies weakness ENT Denies dizziness and Denies headache(s) Card Denies chest pain, Denies lightheadedness, Denies dyspnea and Denies other (Palpitations) Resp Denies cough, Denies dyspnea, Denies wheezing and Denies other ( shortness of breath) Musc Denies numbness and Denies tingling Neuro Denies dizziness, Denies headache(s), Denies numbness, Denies tingling, Denies paresthesias and Denies weakness Psych Denies anxiety and Denies depression Endo Denies fatigue Aller/Immun Denies wheezing Physical exam (Primary Care) Vital Signs: Last Vital Signs Pulse 103 H 02/22/23 08:50 Resp 13 02/22/23 08:50 BP 122/80 02/22/23 08:50 Pulse Ox 96 02/22/23 08:50 Oxygen Delivery Method Room Air 02/22/23 08:50 BMI result Body Mass Index 37.2 Tobacco/Smoking Status: Tobacco use Status Tobacco use date assessed 10/12/22 02/22/23 08:51 Patient Tobacco Use Status Never used Tobacco 02/22/23 08:51 e-Cigarette/Vaping Use Never Used 02/22/23 08:51 Thrive Assessment: Date of Thrive Assessment Date Thrive assessed 02/02/22 02/22/23 08:51 Const General: no acute distress and well developed Nutritional Appearance: well nourished Orientation/consciousness: patient oriented x3 [facility] Head: Yes normocephalic and Yes atraumatic Eyes General: appearance normal, both eyes and all related structures Pupils: Equal, round and reactive pupils present EOM: EOMs intact bilaterally Resp Effort & Inspection: normal respiratory effort Auscultation: clear to auscultation bilaterally Cardio Rate: regular rate Rhythm: regular rhythm Heart sounds: S1 normal heart sound present, S2 normal heart sound present, no gallops, no murmurs and no rubs Neuro General: patient oriented x3 and gait normal Cranial nerves: Yes Equal, round and reactive pupils present Psych Affect: normal affect Office Procedures EKG 76826-[id number], Complete Results AMB Hemoglobin A1c AMB Hemoglobin A1c 6.4 % Last Edit by Sindhu Foster CMA on 02/22/23 09:18 Results Reviewed Results Reviewed: Laboratory Last Values Hgb A1c (Clinic) 6.4 % (4.0-6.0) H 02/22/23 08:51 Assessment and Plan Assessment & Plan (1) Diabetes: Code(s): E11.9 - Type 2 diabetes mellitus without complications Plan: He?6.4%.??Much?improved?from?prior?check.??Goal?is?less?than?7.0% Continue?current?medication?regimen (2) Hypertension: Code(s): I10 - Essential (primary) hypertension Plan: Blood?pressure?is?controlled.??Goal?is?less?than?140/90 Continue?current?medications (3) Tachycardia: Code(s): R00.0 - Tachycardia, unspecified Plan: Heart?rate?well?controlled?with?metoprolol EKG?shows?normal?sinus?rhythm?with?heart?rate?of?90. Normal?axis,?normal?intervals,?no?hypertrophy,?no?ST-T-wave?changes Encouraged?exercise Orders: Orders UA and rflx microscopic Today Z00.00 - Encounter for general adult medical exam ination without abnormal findings TSH reflex Free T4 Today Z00.00 - Encounter for general adult medical examination without abnormal findings AMB EKG-In Office Today R00.2 - Palpitations AMB Hemoglobin A1c Today E11.9 - Type 2 diabetes mellitus without complications Comprehensive [place]. Panel Fast Today Z00.00 - Encounter for general adult medical examination without abnormal findings Lipid Panel Today Z00.00 - Encounter for general adult medical examination wit hout abnormal findings Microalbumin, Random (w Creat) Today I10 - Essential (primary) hypertension Coding Level of Care Code Est Pt Level 4 (66403) Diagnoses Diabetes E11.9 Hypertension I10 Tachycardia R00.0 CPT Codes EKG - CPT: 80395-[id number], Complete ([id number])
== END 2023-02-22 09:32 | disposition home or self-care (01) ==
PROVIDERS: PCP Family Medicine; Visit Provider Family Medicine
DX: E11.9 Type 2 diabetes mellitus without complications (principal); I10 Essential (primary) hypertension; R00.0 Tachycardia, unspecified
CPT/HCPCS: 83036; 93000; 99214

== ENCOUNTER 2023-05-28 15:34 | Outpatient (AMB) | payer OTHER, SELFPAY ==
[2023-05-28 15:46] VITALS: BP 130/78; PULSE 88; O2SAT 98; BMI 37.4
--- NOTE | 2023-05-28 15:46 | MHC.PC.OV ---
Vital Signs 05/28/23 15:46 Height 5 ft 3 in Weight 211 lb 2 oz BMI 37.4 BP 130/78 Blood Pressure Location Lt brachial Position Sitting Pulse 88 Pulse Source Pulse Oximeter Pulse Oximetry (%) 98 Oxygen Delivery Method Room Air Intake Visit Reasons: [facility] ed follow up Intake Note: Patient is here for follow up from [facility] for lightheaded and dizziness. Is last menstrual period known: Yes Last menstrual period: 03/31/23 Allergies No Known Allergies Allergy (Unknown, Verified 05/28/23 15:48) Tobacco use date assessed: 05/28/23 Dental Screening Dental Screen Date: 05/28/23 Did you have a dental visit in the last 12 months?: Yes Did you have a dental problem in the last 6 months where you did not have access to dental care?: No Was dental information given to patient?: Patient has dentist HPI [facility] ed follow up HPI Details 47 y/o female presents today to f/u [facility] ED visit for anxiety, heart palpitations, episodes of dizziness. EKG unremarkable. Blood work reassuring. Pt also had complaints of urinary frequency. She does have hx of diabetes and is on metformin 500mg b.i.d, glipizide 2.5mg. She reports ongoing multiple life stressors. [facility] Medical History Diabetes Hypertension Diabetes Surgical History No pertinent past surgical history Family History Mother Asthma Thyroid disorder Uterus cancer Father Asthma Maternal Grandmother Asthma Diabetes mellitus Paternal Grandmother Diabetes mellitus Social History Household Members: Spouse Household Members Other:: son Housing: House Alcohol intake: current Alcohol intake frequency: holidays/special occasions only Patient Tobacco Use Status: Never used Tobacco e-Cigarette/Vaping Use: Never Used Second Hand Smoke Exposure: No service: No Current occupational status: employed 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 1. Little interest or pleasure in doing things: several days 2. Feeling down, depressed, or hopeless: several days 3. Trouble falling or staying asleep, or sleeping too much: several days 4. Feeling tired or having little energy: nearly every day 5. Poor appetite or overeating: not at all 6. Feeling bad about yourself - or that you are a failure or have let yourself or your family down: not at all 7. Trouble concentrating on things, such as reading the newspaper or watching television: not at all 8. Moving or speaking so slowly that other people could have noticed. Or the opposite - being so fidgety or restless that you have been moving around a lot more than usual: not at all 9. Thoughts that you would be better off or of hurting yourself in some way: not at all Total score: 6 Depression Screening Interpretation: Negative Depression Screening Done: Yes Source: Developed by Drs. Jossue Gonzalez, Michell Templeton, Hitesh Bledsoe and colleagues, with an educational stacie from [employer]. Thrive Questionnaire Date Thrive assessed: 02/02/22 LEIGH-7 AMB Questionnaire LEIGH-7 Date LEIGH - 7 assessed: 05/28/23 Feeling nervous, anxious, or on edge: 3 = Nearly every day Not being able to stop or control worryin = Nearly every day Worrying too much about different things: 3 = Nearly every day Trouble relaxin = Not at all Being so restless that it is hard to sit still: 0 = Not at all Becoming easily annoyed or irritable: 3 = Nearly every day Feeling afraid as if something awful might happen: 1 = Several days Total LEIGH-7 score (0-4 normal; 5-9 mild; 10-14 moderate; 15-21 severe): 13 Source: Developed by Drs. Jossue Gonzalez, Michell Templeton, Hitesh Bledsoe and colleagues, with an educational stacie from [employer]. Review of Systems Const Denies chills, Denies fatigue, Denies fever(s), Denies headache(s) and Denies weakness ENT Denies dizziness and Denies headache(s) Card Denies chest pain, Denies lightheadedness, Denies dyspnea and Denies other (Palpitations) Resp Denies cough, Denies dyspnea, Denies wheezing and Denies other ( shortness of breath) Musc Denies numbness and Denies tingling Neuro Denies dizziness, Denies headache(s), Denies numbness, Denies tingling, Denies paresthesias and Denies weakness Psych Reports anxiety Endo Denies fatigue Aller/Immun Denies wheezing Physical exam (Primary Care) Vital Signs: Last Vital Signs Pulse 88 05/28/23 15:46 BP 130/78 05/28/23 15:46 Pulse Ox 98 05/28/23 15:46 Oxygen Delivery Method Room Air 05/28/23 15:46 BMI result Body Mass Index 37.4 Tobacco/Smoking Status: Tobacco use Status Tobacco use date assessed 05/28/23 05/28/23 15:54 Patient Tobacco Use Status Never used Tobacco 05/28/23 15:54 e-Cigarette/Vaping Use Never Used 05/28/23 15:54 PHQ-9: PHQ-9 Score PHQ-9: Total score 6 05/28/23 16:23 Depression Screening Interpretation: Negative Thrive Assessment: Date of Thrive Assessment Date Thrive assessed 02/02/22 05/28/23 15:54 Const General: no acute distress and well developed Nutritional Appearance: well nourished Orientation/consciousness: patient oriented [facility]3 [facility] Head: Yes normocephalic and Yes atraumatic Eyes General: appearance normal, both eyes and all related structures Pupils: Equal, round and reactive pupils present EOM: EOMs intact bilaterally Resp Effort & Inspection: normal respiratory effort Auscultation: clear to auscultation bilaterally Cardio Rate: regular rate Rhythm: regular rhythm Heart sounds: S1 normal heart sound present, S2 normal heart sound present, no gallops, no murmurs and no rubs Neuro General: patient oriented x3 and gait normal Cranial nerves: Yes Equal, round and reactive pupils present Psych Affect: normal affect Assessment and Plan Assessment & Plan (1) Dizzy spells: Code(s): R42 - Dizziness and giddiness Plan: Dizzy?spell Patient?went?to?the?ED?and?workup?was?essentially?unrevealing.??She?did?seem?rather?anxious. Possibly?anxiety?verses?low?blood?sugars?versus?dehydration. Possibly?combination?of?the?3. Will?give?patient?a?glucose?meter?and?she?can?check?this. Starting?bupropion?for?anxiety?as?she?has?used?this?in?the?past Advise?she?hydrate?well She?has?an?upcoming (2) Diabetes: Comment: Appointment?we?can?follow-up?on?this Code(s): E11.9 - Type 2 diabetes mellitus without complications Plan: As?above?and?we?will?follow-up?at?her?upcoming?appointment (3) Anxiety: Code(s): F41.9 - Anxiety disorder, unspecified Plan: As?above,?start?bupropion Briefly?discussed?the?difference?between?1st?and?2nd?line?medications. (4) Asthma: Code(s): J45.909 - Unspecified asthma, uncomplicated Plan: Patient?says?that?she?also?had?difficulty?breathing - she?felt?that?she?could?not?get?enough?air.??She?has?no?deficits?in?air?movement?today?and?no?wheezing. Use?inhaled?medications?as?prescribed May?have?been?secondary?to?anxiety. No?current?symptoms.??Will?follow-up?on?Sunday Medications: New bupropion HCl 75 mg PO BID 60 tabs 1RF 30 days Changed From metoprolol succinate ER 25 mg PO DAILY 30 days 30 tabs 2RF To metoprolol succinate ER 25 mg PO BID 60 tabs 2RF 30 days Refilled metformin 500 mg PO BID 60 tabs 2RF 30 days Coding Level of Care Code Est Pt Level 4 (30708) Diagnoses Dizzy spells R42 Diabetes E11.9 Anxiety F41.9 Asthma J45.909
== END 2023-05-28 16:48 | disposition home or self-care (01) ==
PROVIDERS: PCP Family Medicine; Visit Provider Family Medicine
DX: R42 Dizziness and giddiness (principal); E11.9 Type 2 diabetes mellitus without complications; F41.9 Anxiety disorder, unspecified; J45.909 Unspecified asthma, uncomplicated
CPT/HCPCS: 99214

== ENCOUNTER 2023-06-01 11:51 | Outpatient (AMB) | payer OTHER, SELFPAY ==
[2023-06-01 12:04] VITALS: BP 122/72; PULSE 87; O2SAT 97; BMI 38.5
--- NOTE | 2023-06-01 12:04 | MHC.PC.OV ---
Vital Signs 06/01/23 12:04 Height 5 ft 3 in Weight 217 lb 2 oz BMI 38.5 BP 122/72 Blood Pressure Location Lt brachial Position Sitting Pulse 87 Pulse Source Pulse Oximeter Pulse Oximetry (%) 97 Oxygen Delivery Method Room Air Intake Visit Reasons: CPE with f/u labs and health maint Intake Note: Patient is here for her physical today. Allergies No Known Allergies Allergy (Unknown, Verified 06/01/23 12:08) Medication List - Last Reconciled 06/01/23 by Pancho Ramos MD albuterol sulfate 90 mcg/actuation (Ventolin HFA) 1 inh inhalation QID PRN 30 days blood sugar diagnostic (SpotMeuch Ultra Test strips) To Test Blood Sugar once a day, As directed, 90 days blood-glucose meter (ZYB Ultra2 Meter) To test Blood sugar As directed, 999 days budesonide 90 mcg/actuation 1 inh inhalation BID 30 days bupropion HCl 75 mg PO BID 30 days glipizide ER 2.5 mg PO QAM 30 days lancets (ZYB Delica Plus Lancet) To Test Blood Sugar once a day, As directed. 90 days losartan 50 mg PO DAILY 30 days metformin 500 mg PO BID 30 days metoprolol succinate ER 25 mg PO BID 30 days omeprazole 20 mg PO DAILY 90 days triamcinolone acetonide 0.5% 1 appl topical BID 14 days Tobacco use date assessed: 06/01/23 Dental Screening Dental Screen Date: 05/28/23 HPI CPE with f/u labs and health maint HPI Details 47 y/o female presents for a CPE with f/u labs and health maintenance. No recent labs to review. Pt had been concerned about bupropion interacting with glipizide/metformin. Last mammogram was in November at [facility]. Last pap smear was also November at [facility]. Pt reports holding of breath/gasping while she sleeps. She states she does not feel well rested when she wakes up. [facility] Medical History Diabetes Hypertension Diabetes Surgical History No pertinent past surgical history Family History Mother Asthma Thyroid disorder Uterus cancer Father Asthma Maternal Grandmother Asthma Diabetes mellitus Paternal Grandmother Diabetes mellitus Social History Household Members: Spouse Household Members Other:: son Housing: House Alcohol intake: current Alcohol intake frequency: holidays/special occasions only Patient Tobacco Use Status: Never used Tobacco e-Cigarette/Vaping Use: Never Used Second Hand Smoke Exposure: No service: No Current occupational status: employed 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: No Sexual orientation: Straight/Heterosexual Gender identity: Female Cognitive needs: No Hearing needs: No Vision needs: No Questionnaire Thrive Questionnaire Date Thrive assessed: 02/02/22 I am a: Patient What is your living situation today?: I have a steady place to live Within the past 12 months, did the food you bought not last and you didn't have the money to get more?: Never true Within the past 12 months, did you worry whether your food would run out before you got money to buy more?: Never true THRIVE Score: 0 LEIGH-7 AMB Questionnaire LEIGH-7 Date LEIGH - 7 assessed: 05/28/23 Source: Developed by Drs. Jossue Gonzalez, Michell Templeton, Hitesh Bledsoe and colleagues, with an educational stacie from [employer]. Review of Systems Const Denies chills, Denies fatigue, Denies fever(s), Denies headache(s) and Denies weakness Eyes Denies change in vision ENT Denies dizziness, Denies headache(s), Denies hearing loss, Denies nasal congestion, Denies sinus pain, Denies sinus pressure and Denies sore throat Card Denies chest pain, Denies lightheadedness, Denies dyspnea and Denies other (palpitations) Resp Denies cough, Denies dyspnea and Denies wheezing GI Denies abdominal pain, Denies melena, Denies hematochezia, Denies change in bowel habits, Denies dyspepsia and Denies nausea Denies hematuria and Denies dysuria Musc Denies abnormal gait, Denies myalgias, Denies arthralgias, Denies numbness and Denies tingling Skin/Breast Denies rash, Denies unusual bruising and Denies wounds Neuro Denies abnormal gait, Denies dizziness, Denies headache(s), Denies memory loss, Denies numbness, Denies Sensory deficit (Neuro), Denies tingling and Denies weakness Psych Denies anxiety, Denies depression and Denies memory loss Endo Denies cold intolerance, Denies fatigue, Denies heat intolerance, Denies polydipsia and Denies polyuria Jhony/Lymph Denies easy bleeding and Denies easy bruising Aller/Immun Denies wheezing Physical exam (Primary Care) Vital Signs: Last Vital Signs Pulse 87 06/01/23 12:04 BP 122/72 06/01/23 12:04 Pulse Ox 97 06/01/23 12:04 Oxygen Delivery Method Room Air 06/01/23 12:04 BMI result Body Mass Index 38.5 Tobacco/Smoking Status: Tobacco use Status Tobacco use date assessed 06/01/23 06/01/23 12:09 Patient Tobacco Use Status Never used Tobacco 06/01/23 12:09 e-Cigarette/Vaping Use Never Used 06/01/23 12:09 Thrive Assessment: Date of Thrive Assessment Date Thrive assessed 02/02/22 06/01/23 12:09 Const General: no acute distress, well developed, alert and awake Nutritional Appearance: well nourished Orientation/consciousness: patient oriented x3 [facility] Head: Yes normocephalic and Yes atraumatic Ears: hearing grossly normal bilaterally and TM's normal bilaterally General nose exam: Normal external nose present and Normal nares present Mouth: Normal oral and palatal mucosa present and moist mucous membranes Teeth and gingiva: dentition normal Throat: Yes posterior oropharynx normal Eyes General: appearance normal, both eyes and all related structures Pupils: Equal, round and reactive pupils present and Pupil accommodation reflex normal EOM: EOMs intact bilaterally Neck Neck: Yes normal visual inspection, Yes no lymphadenopathy and Yes trachea midline Thyroid: Thyroid normal Carotids: no bruits Lymphatic: no lymphadenopathy noted Chest Chest palpation & inspection: normal inspection of the chest Resp Effort & Inspection: normal respiratory effort Auscultation: clear to auscultation bilaterally Cardio Rate: regular rate Rhythm: regular rhythm Heart sounds: S1 normal heart sound present, S2 normal heart sound present, no gallops, no murmurs and no rubs Bruits: no abdominal aortic bruits and no carotid bruits GI Palpation (GI): No Abdominal aortic bruit present, Soft to palpation, nontender, No hepatosplenomegaly present and No Rebound tenderness present Auscultation: normal bowel sounds General: Yes no CVA tenderness Back/Spine/Pelvis Back: no CVA tenderness Cervical Spine: cervical ROM normal and No Cervical spine tenderness Thoracic/Lumbar Spine: thoraco-lumbar ROM normal, No pain with thoraco-lumbar ROM, No thoracic spinal tenderness and No lumbar spinal tenderness Skin Lesions: no lesions Rashes: no rashes Trauma: no lacerations or abrasions Wounds: no wounds Nails: normal Neuro General: patient oriented x3 Cranial nerves: Yes Equal, round and reactive pupils present Cognition (Neuro): normal cognition Gait exam (Neuro): Normal gait present Motor exam (neuro): 5/5 motor strength present throughout Sensory Exam: No Sensory deficit (Neuro) Deep tendon reflexes (DTR's): Right patellar reflex intensity grade: 2+ and Left patellar reflex intensity grade: 2+ Extrem General: Yes normal to inspection and No edema Psych Appearance: grossly normal Affect: normal affect Attitude: cooperative Thought process: Normal thought process present Assessment and Plan Assessment & Plan (1) Diabetes: Code(s): E11.9 - Type 2 diabetes mellitus without complications Plan: A1c?at?last?check?was?6.4%.??Good?control Will?check?A1c?with?next?set?of?labs (2) Hypertension: Code(s): I10 - Essential (primary) hypertension Plan: Blood?pressure?is?controlled.??Goal?is?less?than?140/90 Continue?current?medication (3) Anxiety: Code(s): F41.9 - Anxiety disorder, unspecified Plan: Had?sent?a?script?for?bupropion?but?patient?was?concerned?because?the?pharmacy?tech?had?mentioned possible?interactions.??We?had?called?the?pharmacist?and?the?pharmacist?did?not?find?any?interactions?with?her?medications?at?current?doses. Patient?wants?to?try?the?medication?and?will?begin?this.??We?can?follow-up?at?next?encounter?to?see?how?she?is?doing?with?it. (4) Breast cancer screening by mammogram: Code(s): Z12.31 - Encounter for screening mammogram for malignant neoplasm of breast Plan: Patient?gets?her?mammograms?at?[place]?in?.??She?is?up-to-date Asked?her?to?have?them?forward?report?for?next?mammogram (5) Hypersomnia: Code(s): G47.10 - Hypersomnia, unspecified Plan: Patient?notes?some?holding?of?her?breath?or?gasping?when?she?wakes?up.??She?does?not?feel?rested?when?she?awakens?and?is?sleepy?throughout?her?day. Referred?to?Sleep?Medicine (6) Screening for colon cancer: Code(s): Z12.11 - Encounter for screening for malignant neoplasm of colon Plan: Will?address?at?next?visit (7) Screening for cervical cancer: Comment: 12/06/2022 Pap is negative with negative HPV. Code(s): Z12.4 - Encounter for screening for malignant neoplasm of cervix Plan: Followed?by?Viky Up-to-date (8) Adult general medical exam: Code(s): Z00.00 - Encounter for general adult medical examination without abnormal findings Plan: 47-year-old?female?presents?for?an?extended?exam Orders: Orders Comprehensive [place]. Panel Fast Today Z00.00 - Encounter for general adult medical examination without abnormal findings Lipid Panel Today Z00.00 - Encounter for general adult medical examination without abnormal findings Microalbumin, Random (w Creat) Today I10 - Essential (primary) hypertension Hemoglobin A1c Today R73.01 - Impaired fasting glucose TSH reflex Free T4 Today Z00.00 - Encounter for general adult medical examination without abnormal findings UA and rflx microscopic Today Z00.00 - Encounter for general adult medical examination without abnormal findings Vitamin D 25-OH Total Today E55.9 - Vitamin D deficiency, unspecified Referrals Sleep Medicine Referral G47.10 - Hypersomnia, unspecified Coding Level of Care Code Est Pt Level 3 (83244) Est Pt Prev Care 40-64y(55851) Diagnoses Diabetes E11.9 Hypertension I10 Anxiety F41.9 Breast cancer screening by mammogram Z12.31 Hypersomnia G47.10 Screening for colon cancer Z12.11 Screening for cervical cancer Z12.4 Adult general medical exam Z00.00
== END 2023-06-01 16:15 | disposition home or self-care (01) ==
PROVIDERS: PCP Family Medicine; Visit Provider Family Medicine
DX: Z00.00 Encounter for general adult medical examination without abnormal findings (principal); E11.9 Type 2 diabetes mellitus without complications; I10 Essential (primary) hypertension; F41.9 Anxiety disorder, unspecified; G47.10 Hypersomnia, unspecified
CPT/HCPCS: 99396

== ENCOUNTER 2023-12-10 07:13 | Emergency (ER) | payer OTHER, SELFPAY ==
--- NOTE | ~2023-12-10 | XR_ITS ---
EXAMINATION: XR CHEST CLINICAL INFORMATION: Cough COMPARISON: Chest x-ray April 03, 2022 TECHNIQUE: Frontal view of the chest was obtained. FINDINGS: Cardiac silhouette is normal in size. The lungs are well aerated. There is no lobar consolidation. No pleural effusion or pneumothorax. Mild degenerative changes of the spine. XR/XR chest 1V IMPRESSION: No acute pulmonary pathology. Electronically signed by: Bobby Cohen MD 12/10/2023 08:28 AM [facility]
[2023-12-10 07:17] VITALS: BP 121/100; PULSE 104; RESP 18; TEMP 36.2; O2SAT 92; BMI 37.2
--- NOTE | 2023-12-10 07:36 | ECG_ITS ---
Test Reason : DYSPNEA Blood Pressure : / mmHG Vent. Rate : 098 BPM Atrial Rate : 098 BPM P-R Int : 150 ms QRS Dur : 084 ms QT Int : 370 ms P-R-T Axes : 049 048 031 degrees QTc Int : 472 ms Normal sinus rhythm Normal ECG No previous ECGs available Referred By: Jose Perez Electronically Signed By:MARSHA WELLINGTON MD
--- NOTE | 2023-12-10 07:36 | ED.URI ---
HPI - URI/Sore Throat General Chief Complaint: Upper Respiratory Symptoms Stated Complaint: Wheezing Cough SOB Time Seen by Provider: 12/10/23 07:23 Source: patient Mode of arrival: ambulatory Limitations: no limitations History of Present Illness HPI Narrative: 48 year old female with PMH: asthma presents to the ER one day after going to walk in clinic. Patient started with Upper respiratory symptoms cough congestion runny nose and went to the walk in. She states she was told she has mycoplasma was started on a Z pack and prednisone. Last night felt more congested and that she could not breathe. Used her inhaler but without a spacer. She denies fever or chills. MD elicited complaint: cough and nasal congestion Related Data Previous Rx's ?Medication ?Instructions ?Recorded triamcinolone acetonide 0.5 % 1 appl topical BID 14 days #45 11/13/22 topical cream grams budesonide 90 mcg/actuation breath 1 inh inhalation BID 30 days #1 ea 04/02/23 activated powder inhaler blood sugar diagnostic (OneTouch #100 ea 05/31/23 Ultra Test strips) blood-glucose meter (OneTouch #1 ea 05/31/23 Ultra2 Meter) lancets 33 gauge (OneTouch Delica #100 ea 05/31/23 Plus Lancet) metoprolol succinate 25 mg 25 mg PO BID 30 days #60 tabs 06/11/23 tablet,extended release 24 hr omeprazole 20 mg capsule,delayed 20 mg PO DAILY 90 days #90 caps 06/11/23 release albuterol sulfate 90 mcg/actuation 1 inh inhalation QID PRN shortness 08/28/23 aerosol inhaler (Ventolin HFA) of breath or wheezing 30 days #8.5 grams glipizide 2.5 mg tablet, extended 2.5 mg PO QAM 30 days #30 tabs 09/07/23 release 24 hr losartan 50 mg tablet 50 mg PO DAILY 30 days #30 tabs 09/07/23 metformin 500 mg tablet 500 mg PO BID 30 days #60 tabs 09/07/23 bupropion HCl 75 mg tablet 75 mg PO BID 30 days #60 tabs 12/07/23 oxymetazoline 0.05 % nasal mist 2 spray intranasal .QHS PRN nasal 12/10/23 (Afrin (oxymetazoline)) congestion 3 days #15 mL Allergies Allergy/AdvReac Type Severity Reaction Status Date / Time No Known Allergies Allergy Unknown Verified 12/10/23 07:20 Review of Systems Review of Systems: Review of systems: General: Patient denies any fever chills recent illness or falls Musculoskeletal: Denies back pain or body aches or other injuries HEENT: runny nose nasal congestion denies headache, , ear pain Respiratory: shortness of breath, cough Cardiovascular: no chest pain or palpitations : denies dysuria, frequency Abdomen: no nausea vomiting denies abdominal pain Extremities: no swelling, no pain Skin: no diaphoresis Yes all other systems are reviewed and are negative PMFSH Past Medical History Medical History Diabetes Hypertension Diabetes Surgical History No pertinent past surgical history Family History Family History Mother Asthma Thyroid disorder Uterus cancer Father Asthma Maternal Grandmother Asthma Diabetes mellitus Paternal Grandmother Diabetes mellitus Social History Social History Household Members: Spouse Household Members Other:: son Housing: House Alcohol intake: current Alcohol intake frequency: holidays/special occasions only Patient Tobacco Use Status: Never used Tobacco e-Cigarette/Vaping Use: Never Used Second Hand Smoke Exposure: No Advance Directives: No Advance Directives Information Provided: Yes Do you have a plan to hurt others: No Plan service: No Current occupational status: employed 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: No Sexual orientation: Straight/Heterosexual Gender identity: Female Cognitive needs: No Hearing needs: No Vision needs: No Physical Exam Vital Signs: Vital Signs: Last Vital Signs Temp 98.7 F 12/10/23 08:02 Pulse 104 H 12/10/23 08:03 Resp 18 12/10/23 08:03 BP 151/90 H 12/10/23 08:02 Pulse Ox 95 12/10/23 08:02 O2 Del Method Room Air 12/10/23 08:02 BMI result Body Mass Index 37.2 General: Well-appearing well-nourished in no signs of distress HEENT: Normocephalic atraumatic Neck: No signs of JVD, no masses no tenderness or lymphadenopathy Cardiovascular: Regular rate and rhythm Respiratory: Minimal wheezing bilaterally Abdomen: Soft nontender no masses Extremities: Normal pedal pulses no signs of edema Skin: Dry warm no rashes Back: No tenderness full ROM Course Course Course Narrative: Patient much more comfortable patient did get a nebulizer treatment x-ray swabs were all negative I did spend extra time explain to use the inhaler with a spacer as well as trying something like ibuprofen and Afrin to help the patient sleep patient is happy with the plan and will go home. Medications Administered Discontinued Medications Generic Name Dose Route Start Last Admin Trade Name Freq PRN Reason Stop Dose Admin Albuterol Sulfate 2.5 mg/ 0 mg 12/10/23 08:02 12/10/23 08:08 Albuterol/Ipratropium 3 ml INHALE 12/10/23 08:03 1 dose ONCE ONE Administration Oxymetazoline HCl 2 spray 12/10/23 07:36 12/10/23 07:49 Oxymetazoline Hcl 0.05 % Nasal 15 Ml [place] NOSTRIL-B 12/10/23 07:37 2 spray ONCE ONE Administration Medical Decision Making Medical Decision Making MDM Narrative: URI patient explained symptoms will last some time currently she no hypoxic not ill appearing and not using inhaler correctly. I will do spacer training give a bronchodialator treatment send for repeat XR and swabs Differential Diagnosis Asthma exacerbation COVID flu RSV Admission/Observation Consideration of admission/observation: Escalation of care including admission/observation considered Lab Data [facility] Lab Attestation statement: I reviewed the patient's lab results. Labs: Lab Results 12/10/23 Range/Units 07:27 Influenza Type A (PCR) NEGATIVE (Negative) Influenza Type B (PCR) NEGATIVE (Negative) RSV RNA Qual (PCR) NEGATIVE (Negative) SARS-CoV-2 RNA (RT-PCR) NEGATIVE (Negative) S. pyogenes GrpA ECHO Negative (Negative) Independent Interpretation I performed an independent interpretation of an: EKG and Plain X-Ray Independent Historian Clinical information obtained from an independent historian. History obtained from or confirmed by: Spouse External Record Review External record reviewed: Office record Prescription Management I considered prescription management with: Other Core Measures AMI core measures followed: Yes Discharge Plan Discharge Clinical Impression: Asthma exacerbation Patient Disposition: Home, Self-Care Instructions: Asthma (DC), How to Use a Metered-Dose Inhaler and a Spacer (ED) Additional Instructions: You were seen today for asthma. You had swabs and a XR performed and were given a breathing treatment. Please call to follow up with your doctor. Prescriptions: New Afrin (oxymetazoline) 0.05 % mist 2 spray intranasal .QHS PRN (Reason: nasal congestion) 3 Days Qty: 15 0RF No Action budesonide 90 mcg/actuation aerosol powdr breath activated 1 inh inhalation BID 30 Days Qty: 1 0RF (DME) blood-glucose meter [OneTouch Ultra2 Meter] [facility] [place] Instructions .ROUTE .MEDSUPPLY Qty: 1 0RF Rx Instructions: To test Blood sugar As directed, 999 days (DME) OneTouch Ultra Test Strip See Rx Instructions .ROUTE .MEDSUPPLY Qty: 100 3RF Rx Instructions: To Test Blood Sugar once a day, As directed, 90 days (DME) lancets [OneTouch Delica Plus Lancet] 33 gauge misc See Rx Instructions .ROUTE .MEDSUPPLY Qty: 100 3RF Rx Instructions: To Test Blood Sugar once a day, As directed. 90 days omeprazole 20 mg capsule,delayed release(DR/EC) 20 mg PO DAILY 90 Days Qty: 90 1RF metoprolol succinate 25 mg tablet extended release 24 hr 25 mg PO BID 30 Days Qty: 60 2RF albuterol sulfate [Ventolin HFA] 90 mcg/actuation HFA aerosol inhaler 1 inh inhalation QID PRN (Reason: shortness of breath or wheezing) 30 Days Qty: 8.5 1RF glipizide 2.5 mg tablet extended release 24hr 2.5 mg PO QAM 30 Days Qty: 30 2RF losartan 50 mg tablet 50 mg PO DAILY 30 Days Qty: 30 2RF metformin 500 mg tablet 500 mg PO BID 30 Days Qty: 60 2RF bupropion HCl 75 mg tablet 75 mg PO BID 30 Days Qty: 60 1RF triamcinolone acetonide 0.5 % cream 1 appl topical BID 14 Days Qty: 45 1RF Stand Alone Forms: Work/School Release Print Language: [place]ese
[2023-12-10 07:38] VITALS: PULSE 104; O2SAT 94
[2023-12-10] MEDS: Oxymetazoline HCl 0.05 % Nasal 15 ML SPRAY 2 SPRAY NOSTRIL-B (07:49)
[2023-12-10 08:02] VITALS: BP 151/90; PULSE 94; RESP 16; TEMP 37.1; O2SAT 95
[2023-12-10 08:03] VITALS: PULSE 104; RESP 18; O2SAT 94
--- NOTE | 2023-12-10 08:03 | PC.NURSE ---
respiratory at bedside for updraft and spacer teaching. patient remains alert and oriented with even and unlabored respirations.
[2023-12-10] MEDS: Albuterol Sulfate 2.5 MG, Albuterol/Iprat 2.5/0.5MG 3 ML 3 ML INHALE (08:08)
[2023-12-10 08:09] LABS: IDNOW Serial# 08D9AD1C; Strep A Nucleic Acid Negative (Negative)
[2023-12-10 08:29] LABS: Influenza A PCR NEGATIVE (Negative); Influenza B PCR NEGATIVE (Negative); Resp Syncy Virus RNA Qual PCR NEGATIVE (Negative); SARS COV2 PCR INHOUSE NEGATIVE (Negative)
[2023-12-10 09:47] VITALS: BP 151/90; PULSE 94; RESP 18; TEMP 37.1; O2SAT 95
== END 2023-12-10 09:55 | disposition home or self-care (01) ==
PROVIDERS: Emergency Provider Student in an Organized Health Care Education/Training Program; PCP Family Medicine
DX: J45.901 Unspecified asthma with (acute) exacerbation (principal); R05.9 Cough, unspecified; R09.89 Other specified symptoms and signs involving the circulatory and respiratory systems; I10 Essential (primary) hypertension; E11.8 Type 2 diabetes mellitus with unspecified complications; Z79.899 Other long term (current) drug therapy; Z03.818 Encounter for observation for suspected exposure to other biological agents ruled out
CPT/HCPCS: 0241U; 71045; 87651; 93005; 94640; 94664; 99284; 99285

== ENCOUNTER → 2023-12-10 07:36 | Outpatient (BNV) | payer OTHER, SELFPAY | PROVIDERS: Emergency Provider Student in an Organized Health Care Education/Training Program; PCP Family Medicine; Visit Provider Internal Medicine Cardiovascular Disease | DX: R06.00 Dyspnea, unspecified (principal) | CPT/HCPCS: 93010 ==

== ENCOUNTER 2023-12-11 12:54 | Outpatient (AMB) | payer OTHER, SELFPAY ==
--- NOTE | 2023-12-11 13:04 | A.OFFPC_ITS ---
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 Is last menstrual period known: No Post menopausal: No Patient : No Allergies No Known Allergies Allergy (Unknown, Verified 12/11/23 13:29) Medication List - Last Reconciled 12/11/23 by Jakob Bernabe CNP albuterol sulfate 90 mcg/actuation (Ventolin HFA) 1 inh inhalation QID PRN 30 days azithromycin 250 mg PO DAILY benzonatate mg PO blood sugar diagnostic (Language Systemsuch Ultra Test strips) To Test Blood Sugar once a day, As directed, 90 days blood-glucose meter (Language Systemsuch Ultra2 Meter) To test Blood sugar As directed, 999 days bupropion HCl 75 mg PO BID 30 days glipizide ER 2.5 mg PO QAM 30 days lancets (Doctor [employer] Delica Plus Lancet) To Test Blood Sugar once a day, As directed. 90 days losartan 50 mg PO DAILY 30 days metformin 500 mg PO BID 30 days metoprolol succinate ER 25 mg PO BID 30 days omeprazole 20 mg PO DAILY 90 days oxymetazoline 0.05% (Afrin (oxymetazoline)) 2 sprays intranasal .QHS PRN 3 days prednisone 40 mg PO DAILY triamcinolone acetonide 0.5% 1 appl topical BID 14 days Tobacco use date assessed: 12/11/23 Dental Screening Dental Screen Date: 12/11/23 Did you have a dental visit in the last 12 months?: Yes Did you have a dental problem in the last 6 months where you did not have access to dental care?: No Was dental information given to patient?: Patient has dentist HPI HPI Comments History of Present Illness Details 48-year-old female presents for ED disch arge follow-up. She was evaluated and treated at [facility] ED on 12/10 2023 for asthma exacerbation. Viral testing, including COVID/flu/RSV were negative. Chest x-ray was negative. She was sent home on Afrin. She was initially treated for mycoplasma at an urgent care with prednisone and Z-Soham. She reports persistent shortness of breath which is worse at night. She notes that she has been taking Afrin and using her albuterol inhaler as needed with some relief. She started using the albuterol spacer that was given to her by the ED. COUNTS INCLUDE 234 BEDS AT THE [facility] Medical History Diabetes Hypertension Diabetes Surgical History No pertinent past surgical history Family History Mother Asthma Thyroid disorder Uterus cancer Father Asthma Maternal Grandmother Asthma Diabetes mellitus Paternal Grandmother Diabetes mellitus Social History Household Members: Spouse Household Members Other:: son Housing: House Alcohol intake: current Alcohol intake frequency: holidays/special occasions only Patient Tobacco Use Status: Never used Tobacco e-Cigarette/Vaping Use: Never Used Second Hand Smoke Exposure: No service: No Current occupational status: employed 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 1. Little interest or pleasure in doing things: several days 2. Feeling down, depressed, or hopeless: several days 3. Trouble falling or staying asleep, or sleeping too much: several days 4. Feeling tired or having little energy: several days 5. Poor appetite or overeating: not at all 6. Feeling bad about yourself - or that you are a failure or have let yourself or your family down: not at all 7. Trouble concentrating on things, such as reading the newspaper or watching television: not at all 8. Moving or speaking so slowly that other people could have noticed. Or the opposite - being so fidgety or restless that you have been moving around a lot more than usual: not at all 9. Thoughts that you would be better off or of hurting yourself in some way: not at all Total score: 4 Depression Screening Interpretation: Negative Depression Screening Done: Yes 74675 - PHQ-9 Billing: Yes Source: Developed by Drs. Jossue Gonzalez, Michell Templeton, Hitesh Bledsoe and colleagues, with an educational stacie from [employer]. Thrive Questionnaire Date Thrive assessed: 12/11/23 I am a: Patient What is your living situation today?: I have a steady place to live Within the past 12 months, did the food you bought not last and you didn't have the money to get more?: Never true Within the past 12 months, did you worry whether your food would run out before you got money to buy more?: Never true Do you have trouble paying for medicines?: No Do you have trouble getting transportation to medical appointments?: No Do you have trouble paying your heating and electricity bill?: No Do you have trouble taking care of your child, family member or friend?: No Do you have trouble with day-to-day activities such as bathing, preparing meals, shopping, managing finances, etc.?: No Are you currently unemployed and looking for a job?: No Are you interested in more education?: No Please select the resources that you would like help with: None Currently or been in a relationship where the following occur: No concerns reported THRIVE Score: 0 AUDIT C Alcohol Use Questionnaire (AUDIT-C) 1. How often do you have a drink containing alcohol?: Monthly or less 2. How many drinks containing alcohol do you have on a typical day when you are drinking?: 1 or 2 3. How often do you have six or more drinks on one occasion?: Never Total Score: 1 Score Reviewed/Action Taken: Yes LEIGH-7 AMB Questionnaire LEIGH-7 Date LEIGH - 7 assessed: 12/11/23 Feeling nervous, anxious, or on edge: 1 = Several days Not being able to stop or control worryin = Not at all Worrying too much about different things: 0 = Not at all Trouble relaxin = Not at all Being so restless that it is hard to sit still: 0 = Not at all Becoming easily annoyed or irritable: 0 = Not at all Feeling afraid as if something awful might happen: 0 = Not at all Total LEIGH-7 score (0-4 normal; 5-9 mild; 10-14 moderate; 15-21 severe): 1 Source: Developed by Drs. Jossue Gonzalez, Michell Templeton, Hitesh Bledsoe and colleagues, with an educational stacie from [employer]. LEIGH-7 Assessment Billing LEIGH-7 Assessment Tool: LEIGH-7 Assessment 98684 ACT Questionnaire In the past 4 weeks, how much of the time did your asthma keep you from getting as much done at work, school or at home?: Most of the time During the past 4 weeks, how often have you had shortness of breath?: More than once a day During the past 4 weeks, how often did your asthma symptoms wake you up at night or earlier than usual in the morning?: 4 or more nights a week During the past 4 weeks, how often have you had to use your rescue inhaler or nebulizer medication?: More than 3 times per day How would you rate your asthma control during the past 4 weeks?: Poorly controlled Score: 7 Review of Systems Const Details: Const Denies chills, Denies fatigue, Denies fever(s), Denies headache(s) and Denies weakness ENT Denies dizziness and Denies headache(s) Card Denies chest pain, Denies lightheadedness, Denies dyspnea and Denies other (Palpitations) Resp Denies cough, Denies dyspnea, Denies wheezing and Denies other ( shortness of breath) GI Denies abdominal pain, Denies melena, Denies hematochezia, Denies change in bowel habits, Denies dyspepsia and Denies nausea Denies hematuria and Denies dysuria Musc Denies abnormal gait, Denies myalgias, Denies arthralgias, Denies numbness and Denies tingling Skin/Breast Denies rash, Denies unusual bruising and Denies wounds Neuro Denies abnormal gait, Denies dizziness, Denies headache(s), Denies memory loss, Denies numbness, Denies Sensory deficit (Neuro), Denies tingling and Denies weakness Psych Denies anxiety, Denies depression, Denies memory loss Endo Denies cold intolerance, Denies fatigue, Denies heat intolerance, Denies polydipsia and Denies polyuria Aller/Immun Denies wheezing Physical exam (Primary Care) Vital Signs: Last Vital Signs Temp 98.7 F 12/11/23 13:15 Pulse 101 H 12/11/23 13:15 Resp 16 12/11/23 13:15 BP 136/80 12/11/23 13:15 Pulse Ox 96 12/11/23 13:15 Oxygen Delivery Method Room Air 12/11/23 13:15 BMI result Body Mass Index 36.2 Tobacco/Smoking Status: Tobacco use Status Tobacco use date assessed 12/11/23 12/11/23 13:21 Patient Tobacco Use Status Never used Tobacco 12/11/23 13:05 e-Cigarette/Vaping Use Never Used 12/11/23 13:05 PHQ-9: PHQ-9 Score PHQ-9: Total score 4 12/11/23 13:22 Depression Screening Interpretation: Negative Thrive Assessment: Date of Thrive Assessment Date Thrive assessed 12/11/23 12/11/23 13:22 Currently or been in a relationship where the following occur: No concerns r eported Const Other: General: no acute distress and well developed Nutritional Appearance: well nourished Orientation/consciousness: patient oriented x3 HENMT Head: Yes normocephalic and Yes atraumatic Eyes General: appearance normal, both eyes and all related structures Pupils: Equal, round and reactive pupils present EOM: EOMs intact bilaterally Resp Effort & Inspection: normal respiratory effort Auscultation: Slight wheezing to auscultation bilaterally Cardio Rate: regular rate Rhythm: regular rhythm Heart sounds: S1 normal heart sound present, S2 normal heart sound present, no gallops, no murmurs and no rubs GI Palpation (GI): No Abdominal aortic bruit present, Soft to palpation, nontender, No hepatosplenomegaly present and No Rebound tenderness present Auscultation: normal bowel sounds General: Yes no CVA tenderness Back/Spine/Pelvis Back: no CVA tenderness Extrem General: Yes normal to inspection, No edema and No calf tenderness Skin General: warm and dry. Normal skin color. Normal skin turgor Neuro General: patient oriented x3, gait normal and no focal neuro deficit Cranial nerves: Yes Equal, round and reactive pupils present Cognition (Neuro): normal cognition Gait exam (Neuro): Normal gait present Sensory Exam: No Sensory deficit (Neuro) Psych Appearance: grossly normal Affect: normal affect Attitude: cooperative Thought process: Normal thought process present Coding Level of Care Code Est Pt Level 4 (87758) Diagnoses Asthma exacerbation J45.901 Additional Codes LEIGH-7 Assessment Billing - LEIGH-7 Assessment Tool: LEIGH-7 Assessment 51661 ([id number]) Assessment & Plan Assessment & Plan (1) Asthma exacerbation: Code(s): J45.901 - Unspecified asthma with (acute) exacerbation Category: Medical Plan: Patient reports persistent shortness of breath which is worse at night Lung sounds with slight wheezing bilaterally Albuterol with nebulizer ordered. Advised to use as prescribed Fluticasone propionate ordered. Advised to use as prescribed. Instructed to use albuterol inhaler before each fluticasone use and rinse mouth completely Continue to use albuterol inhaler as prescribed Allergies may also be a contributing factor. Zyrtec ordered. Advised to take as prescribed Follow-up with PCP or return sooner with symptoms or concerns Verbalized understanding and agreed with the treatment plan Medications: New fluticasone propionate 110 mcg/actuation 2 puffs inhalation BID 12 grams 3RF albuterol sulfate 2.5 mg (3 mL) inhalation Q4-6H PRN 90 mL 3RF shortness of breath or wheezing cetirizine (Zyrtec) 10 mg PO DAILY 30 days 30 tabs 3RF miscellaneous medical supply 1 nebulizer for albuterol treatment 1 ea 0RF compressor, for nebulizer As directed 1 ea 0RF
[2023-12-11 13:15] VITALS: BP 136/80; PULSE 101; RESP 16; TEMP 37.1; O2SAT 96; BMI 36.2
== END 2023-12-11 13:48 | disposition home or self-care (01) ==
LOC: HO.HMCFM 12:55
PROVIDERS: PCP Family Medicine; Visit Provider Nurse Practitioner Family
DX: J45.901 Unspecified asthma with (acute) exacerbation (principal)

== ENCOUNTER → 2023-12-11 12:54 | Outpatient (BNVA) | payer OTHER, SELFPAY | PROVIDERS: PCP Family Medicine; Visit Provider Nurse Practitioner Family | DX: J45.901 Unspecified asthma with (acute) exacerbation (principal) | CPT/HCPCS: 96127; 96160 ==

== ENCOUNTER 2023-12-20 10:37 | Outpatient (AMB) | payer OTHER, SELFPAY ==
[2023-12-20 10:50] VITALS: BP 128/78; BMI 37.2
--- NOTE | 2023-12-20 10:50 | MHC.OFFVIS ---
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 Allergies No Known Allergies Allergy (Unknown, Verified 12/20/23 10:51) Medication List - Last Reconciled 12/20/23 by Jennifer Estrella CNM albuterol sulfate 90 mcg/actuation (Ventolin HFA) 1 inh inhalation QID PRN 30 days albuterol sulfate 2.5 mg (3 mL) inhalation Q4-6H PRN benzonatate mg PO blood sugar diagnostic ([employer] Ultra Test strips) To Test Blood Sugar once a day, As directed, 90 days blood-glucose meter ([employer] Ultra2 Meter) To test Blood sugar As directed, 999 days bupropion HCl 75 mg PO BID 30 days cetirizine (Zyrtec) 10 mg PO DAILY 30 days compressor, for nebulizer As directed fluticasone propionate 110 mcg/actuation 2 puffs inhalation BID glipizide ER 2.5 mg PO QAM 30 days lancets ([employer] Delica Plus Lancet) To Test Blood Sugar once a day, As directed. 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 May this year and she has not had any since she does know decreased libido. She has feeling she has been heading towards menopause for a while. She does find herself very emotional too. 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 She tries to walk or exercise on to go on the [employer]. She does not contraceptive but she does not have sex very much either because of decreased libido. She says her diabetes and blood pressure doing very well she recently had an issue with her asthma and feeling like she could not take a deep breath, but now she has a nebulizer that she does every day and that helps PFSH Medical History Diabetes Hypertension Diabetes Surgical History No pertinent past surgical history Family History Mother Asthma Thyroid disorder Uterus cancer Father Asthma Maternal Grandmother Asthma Diabetes mellitus Paternal Grandmother Diabetes mellitus Social History Household Members: Spouse Household Members Other:: son Housing: House Alcohol intake: current Alcohol intake frequency: holidays/special occasions only Patient Tobacco Use Status: Never used Tobacco e-Cigarette/Vaping Use: Never Used Second Hand Smoke Exposure: No service: No Current occupational status: employed 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: No Sexual orientation: Straight/Heterosexual Gender identity: Female Cognitive needs: No Hearing needs: No Vision needs: No Female Reproductive History Menstrual Age of Menarche: 12 Duration of menses: <3 days Date of last menstrual period: 05/06/23 control method: none Total pregnancies: 1 Full term: 1 Date of last pap smear: 12/07/22 (negative) History of abnormal pap smear: No Physical Exam Vital Signs: Last Vital Signs BP 128/78 12/20/23 10:50 BMI result Body Mass Index 37.2 Const General: healthy appearing, comfortable, no acute distress, well developed and alert Nutritional Appearance: average body habitus Orientation/consciousness: patient oriented x3 Limitations: no limitations HEENT Head: Yes normocephalic Neck Neck: Yes normal visual inspection Chest Chest palpation & inspection: normal inspection of the chest Breast/axilla inspection: normal inspection of the breasts and normal inspection of the axillae Breast/axilla palpation: normal palpation of the breasts and normal palpation of the axillae Resp Effort & Inspection: normal respiratory effort GI Inspection: Yes normal to inspection, No Abdominal wall edema and No distended Palpation (GI): Soft to palpation and nontender Other: External vulva within normal limits vagina is pink and moist her cervix is pink multiparous shiny appearing very clear shiny mucus. Cervix is long close thick tender uterus difficult to feel secondary to adipose adnexa nontender fair tone with Kegel able to reproduce several times. General: Yes bladder normal to palpation External Female Exam: normal external appearance and normal appearance of the urethra Speculum Exam - Vagina: normal appearance of the vagina, normal palpation and normal vaginal discharge Speculum Exam - Cervix: normal appearance of the cervix, normal palpation and nontender Bimanual exam- vagina & uterus: normal bimanual exam, normal palpation, uterine size normal, bladder normal to palpation, consistency normal, normal palpation, uterine mobility normal, uterine shape normal, No Cervical tenderness present, non-tender and no cervical motion tenderness Bimanual Exam- Adnexa, other: normal adnexae, no masses, normal and No adnexal tenderness Neuro General: patient oriented x3 Assessment & Plan Assessment & Plan (1) Well woman exam with routine gynecological exam: Code(s): Z01.419 - Encounter for gynecological examination (general) (routine) without abnormal findings Category: Medical (2) Breast cancer screening: Code(s): Z12.39 - Encounter for other screening for malignant neoplasm of breast Category: Medical (3) Perimenopause: Code(s): N95.1 - Menopausal and female climacteric states Category: Medical (4) Hypertension: Code(s): I10 - Essential (primary) hypertension Category: Medical (5) Diabetes: Code(s): E11.9 - Type 2 diabetes mellitus without complications Category: Medical (6) Screening for cervical cancer: Comment: 12/06/2022 Pap is negative with negative HPV. Code(s): Z12.4 - Encounter for screening for malignant neoplasm of cervix Category: Medical Plan -----Discussed in this visit the following: healthy balanced diet, regular and consistent exercise, getting recommended health screens, doing the best she can for her particular health concerns, kegel exercises, pap smear screening and followup recommendations, mammography screening and SBE, normal changes in cycles in her life stage--- Reviewed the range of ramses menopausal symptoms. Discussed the other issues of her health she has she is doing well diabetes and hypertension control she sees Dr Ramos soon. She told me her story [facility] baby ended up the nurse delivered her baby because was running between [address] Romero was her doctor but was her doctor was off call. She will be getting her mammograms soon it is scheduled. Discussed that her last Pap smear was negative last year but she had had a long gap between Pap smears it might be worth another Pap 3 years from last year so in 202. Coding Level of Care Code Est Pt Prev Care 40-64y(94295) Diagnoses Well woman exam with routine gynecological exam Z01.419 Breast cancer screening Z12.39 Perimenopause N95.1 Hypertension I10 Diabetes E11.9 Screening for cervical cancer Z12.4
== END 2023-12-20 11:31 | disposition home or self-care (01) ==
PROVIDERS: PCP Family Medicine; Visit Provider Advanced Practice Midwife
DX: Z01.419 Encounter for gynecological examination (general) (routine) without abnormal findings (principal); Z12.39 Encounter for other screening for malignant neoplasm of breast; N95.1 Menopausal and female climacteric states; I10 Essential (primary) hypertension; E11.9 Type 2 diabetes mellitus without complications; Z12.4 Encounter for screening for malignant neoplasm of cervix
CPT/HCPCS: 99396

== ENCOUNTER → 2023-12-20 10:37 | Outpatient (BNVA) | payer OTHER, SELFPAY | PROVIDERS: PCP Family Medicine; Visit Provider Advanced Practice Midwife ==

== ENCOUNTER 2023-12-25 10:26 | Outpatient (AMB) | payer OTHER, SELFPAY ==
--- NOTE | 2023-12-25 10:35 | A.OFFPC_ITS ---
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 Intake Note: f/u for asthma Allergies No Known Allergies Allergy (Unknown, Verified 12/25/23 10:35) Medication List - Last Reconciled 12/25/23 by Pancho Ramos MD albuterol sulfate 90 mcg/actuation (Ventolin HFA) 1 inh inhalation QID PRN 30 days albuterol sulfate 2.5 mg (3 mL) inhalation Q4-6H PRN benzonatate mg PO blood sugar diagnostic ([employer] Ultra Test strips) To Test Blood Sugar once a day, As directed, 90 days blood-glucose meter ([employer] Ultra2 Meter) To test Blood sugar As directed, 999 days bupropion HCl 75 mg PO BID 30 days cetirizine (Zyrtec) 10 mg PO DAILY 30 days compressor, for nebulizer As directed glipizide ER 2.5 mg PO QAM 30 days lancets ([employer] Delica Plus Lancet) To Test Blood Sugar once a day, As directed. 90 days losartan 50 mg PO DAILY 30 days metformin 500 mg PO BID 30 days metoprolol succinate ER 25 mg PO BID 30 days omeprazole 20 mg PO DAILY 90 days oxymetazoline 0.05% (Afrin (oxymetazoline)) 2 sprays intranasal .QHS PRN 3 days triamcinolone acetonide 0.5% 1 appl topical BID 14 days Tobacco use date assessed: 12/11/23 Dental Screening Dental Screen Date: 12/11/[address] Pierce asthma HPI Details 48 y/o female presents to f/u asthma. Had seen [facility] 12/11/23 - was given albuterol with nebulizer along with fluticasone. Has been consistent with her medication regimen. Had made referral to pulmonology. [facility] Medical History Diabetes Hypertension Diabetes Surgical History No pertinent past surgical history Family History Mother Asthma Thyroid disorder Uterus cancer Father Asthma Maternal Grandmother Asthma Diabetes mellitus Paternal Grandmother Diabetes mellitus Social History Household Members: Spouse Household Members Other:: son Housing: House Alcohol intake: current Alcohol intake frequency: holidays/special occasions only Patient Tobacco Use Status: Never used Tobacco e-Cigarette/Vaping Use: Never Used Second Hand Smoke Exposure: No service: No Current occupational status: employed 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: No Sexual orientation: Straight/Heterosexual Gender identity: Female Cognitive needs: No Hearing needs: No Vision needs: No Female Reproductive History Menstrual Age of Menarche: 12 Questionnaire Thrive Questionnaire Date Thrive assessed: 12/11/23 I am a: Patient What is your living situation today?: I have a steady place to live Within the past 12 months, did the food you bought not last and you didn't have the money to get more?: Never true Within the past 12 months, did you worry whether your food would run out before you got money to buy more?: Never true Do you have trouble paying for medicines?: No Do you have trouble getting transportation to medical appointments?: No Do you have trouble paying your heating and electricity bill?: No Do you have trouble taking care of your child, family member or friend?: No Do you have trouble with day-to-day activities such as bathing, preparing meals, shopping, managing finances, etc.?: No Are you currently unemployed and looking for a job?: No Are you interested in more education?: No Please select the resources that you would like help with: None Currently or been in a relationship where the following occur: No concerns reported THRIVE Score: 0 LEIGH-7 AMB Questionnaire LEIGH-7 Date LEIGH - 7 assessed: 12/11/23 Source: Developed by Drs. Jossue Gonzalez, Michell Templeton, Hitesh Bledsoe and colleagues, with an educational stacie from [employer]. Review of Systems Const Denies chills, Denies fatigue, Denies fever(s), Denies headache(s) and Denies weakness ENT Denies dizziness and Denies headache(s) Card Denies dyspnea Resp Denies cough, Denies dyspnea, Denies wheezing and Denies other (shortness of breath) Musc Denies numbness and Denies tingling Neuro Denies dizziness, Denies headache(s), Denies numbness, Denies tingling and Denies weakness Psych Denies anxiety and Denies depression Endo Denies fatigue Aller/Immun Denies wheezing Physical exam (Primary Care) Vital Signs: Last Vital Signs Temp 98.4 F 12/25/23 10:37 Pulse 92 12/25/23 10:37 Resp 14 12/25/23 10:37 BP 110/60 12/25/23 10:37 Pulse Ox 98 12/25/23 10:37 Oxygen Delivery Method Room Air 12/25/23 10:37 BMI result Body Mass Index 37.6 Tobacco/Smoking Status: Tobacco use Status Tobacco use date assessed 12/11/23 12/25/23 10:40 Patient Tobacco Use Status Never used Tobacco 12/25/23 10:40 e-Cigarette/Vaping Use Never Used 12/25/23 10:40 Thrive Assessment: Date of Thrive Assessment Date Thrive assessed 12/11/23 12/25/23 10:40 Currently or been in a relationship where the following occur: No concerns reported Const General: well developed; No acute distress Nutritional Appearance: well nourished Orientation/consciousness: patient oriented x3 [facility]: Yes normocephalic and Yes atraumatic Eyes General: appearance normal, both eyes and all related structures Pupils: Equal, round and reactive pupils present EOM: EOMs intact bilaterally Resp Effort & Inspection: normal respiratory effort Neuro General: patient oriented x3 and gait normal Cranial nerves: Yes Equal, round and reactive pupils present Psych Affect: normal affect Coding Level of Care Code Est Pt Level 3 (12932) Diagnoses Asthma J45.909 Nasal congestion R09.81 Assessment & Plan Assessment & Plan (1) Asthma: Code(s): J45.909 - Unspecified asthma, uncomplicated Category: Medical Plan: 48-year-old?female?presents?to?follow-up?asthma She?is?taking?albuterol?every?day She?was?prescribed?a?controller?medication?but?has?not?picked?this?up?yet. Advised?her?to?take?controller?medication?daily?as?prescrib ed?and?she?can?use?albuterol?when?she?is?symptomatic. 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 Recommend?she?stop?Afrin?see?below Patient?would?like?a?referral?to?pulmonology?and?I?have?made?this (2) Nasal congestion: Code(s): R09.81 - Nasal congestion Category: Medical Plan: Patient?mota s?been?using?Afrin?chronically?and?likely?has?a?dependency/rebound?this?medicati on I?recommend?that?she?discontinue?use?which?will?likely?make?things?worse?before? they?are?better.??She?can?nasal?saline?throughout?day Should?improve?within?a?week She?can?also?continue?using?[facility] Orders: Referrals Pulmonology Referral J45.909 - Unspecified asthma, uncomplicated Medications: Refilled budesonide 180 mcg/actuation (Pulmicort Flexhaler) 2 inhalations inhalation QAM 30 days 1 ea 3RF
[2023-12-25 10:37] VITALS: BP 110/60; PULSE 92; RESP 14; TEMP 36.9; O2SAT 98; BMI 37.6
== END 2023-12-25 11:32 | disposition home or self-care (01) ==
PROVIDERS: PCP Family Medicine; Visit Provider Family Medicine
DX: J45.909 Unspecified asthma, uncomplicated (principal); R09.81 Nasal congestion

== ENCOUNTER → 2023-12-25 10:26 | Outpatient (BNVA) | payer OTHER, SELFPAY | PROVIDERS: PCP Family Medicine; Visit Provider Family Medicine ==

== ENCOUNTER 2024-12-23 13:50 | Outpatient (AMB) | payer OTHER, SELFPAY ==
--- NOTE | 2024-12-23 13:56 | A.OFFPC_ITS ---
Vital Signs 12/23/24 14:11 Height 5 ft 3 in Weight 201 lb 2 oz BMI 35.6 BP 138/78 Blood Pressure Location Rt brachial Position Sitting Respiration 14 Pulse 94 Pulse Source Pulse Oximeter Temp 98.2 F Temp Source Temporal Artery Scan Pulse Oximetry (%) 98 Oxygen Delivery Method Room Air Intake Visit Reasons: CPE Intake Note: Eleni presents in the office today for her annual physical. Allergies No Known Allergies Allergy (Unknown, Verified 12/23/24 14:06) Medication List - Last Reconciled 12/23/24 by Pancho Ramos MD albuterol sulfate 2.5 mg (3 mL) inhalation Q4-6H PRN albuterol sulfate 90 mcg/actuation (Ventolin HFA) 1 inh inhalation QID PRN 30 days blood sugar diagnostic (Nature's Varietyuch Ultra Test strips) To Test Blood Sugar once a day, As directed, 90 days blood-glucose meter (Nature's Varietyuch Ultra2 Meter) To test Blood sugar As directed, 999 days budesonide 180 mcg/actuation (Pulmicort Flexhaler) 2 inhalations inhalation QAM 30 days bupropion HCl 75 mg PO ONCE cetirizine (Zyrtec) 10 mg PO DAILY 30 days compressor, for nebulizer As directed fluticasone propionate 50 mcg/actuation (Flonase Allergy Relief) 1 spray intranasal Q12H 30 days glipizide ER 2.5 mg PO QAM 30 days lancets (myFairPartnerTouch Delica Plus Lancet) To Test Blood Sugar once a day, As directed. 90 days losartan 50 mg PO DAILY 30 days metformin 500 mg PO ONCE metoprolol succinate ER 25 mg PO ONCE omeprazole 20 mg PO DAILY 90 days triamcinolone acetonide 0.5% 1 appl topical BID 14 days Tobacco use date assessed: 12/23/24 Dental Screening Dental Screen Date: 12/23/24 Did you have a dental visit in the last 12 months?: Yes Did you have a dental problem in the last 6 months where you did not have access to dental care?: No Was dental information given to patient?: Patient has dentist HPI CPE HPI Details 49 y/o female presents for a CPE with f/ u labs and health maint. No recent labs to review. PHQ-9 4, LEIGH-7 11 today. She is on bupropion 75mg daily. BP today 138/78, 94p. She is on losartan 50mg, metoprolol 25mg daily. A1c today 6.0%. [facility] Medical History Diabetes Hypertension Diabetes Surgical History No pertinent past surgical history Family History Mother Asthma Thyroid disorder Uterus cancer Father Asthma Maternal Grandmother Asthma Diabetes mellitus Paternal Grandmother Diabetes mellitus Social History (Updated 12/23/24 @ 14:11 by María Etienne CMA) Household Members: Spouse Household Members Other:: son Housing: House Alcohol intake: current Alcohol intake frequency: holidays/special occasions only Patient Tobacco Use Status: Never used Tobacco e-Cigarette/Vaping Use: Never Used Second Hand Smoke Exposure: No Use of substances other than those prescribed or required for medical reasons: No service: No Current occupational status: employed 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 1. Little interest or pleasure in doing things: not at all 2. Feeling down, depressed, or hopeless: several days 3. Trouble falling or staying asleep, or sleeping too much: not at all 4. Feeling tired or having little energy: several days 5. Poor appetite or overeating: several days 6. Feeling bad about yourself - or that you are a failure or have let yourself or your family down: several days 7. Trouble concentrating on things, such as reading the newspaper or watching television: not at all 8. Moving or speaking so slowly that other people could have noticed. Or the opposite - being so fidgety or restless that you have been moving around a lot more than usual: not at all 9. Thoughts that you would be better off or of hurting yourself in some way: not at all Total score: 4 Depression Screening Interpretation: Negative Depression Screening Done: Yes 82423 - PHQ-9 Billing: Yes Source: Developed by Drs. Jossue Gonzalez, Michell Templeton, Hitesh Bledsoe and colleagues, with an educational stacie from [employer]. Thrive Questionnaire Date Thrive assessed: 12/23/24 I am a: Patient What is your living situation today?: I have a steady place to live Within the past 12 months, did the food you bought not last and you didn't have the money to get more?: Never true Within the past 12 months, did you worry whether your food would run out before you got money to buy more?: Never true Do you have trouble paying for medicines?: No Do you have trouble getting transportation to medical appointments?: No Do you have trouble paying your heating and electricity bill?: No Do you have trouble taking care of your child, family member or friend?: No Do you have trouble with day-to-day activities such as bathing, preparing meals, shopping, managing finances, etc.?: No Are you currently unemployed and looking for a job?: No Are you interested in more education?: No Please select the resources that you would like help with: None Currently or been in a relationship where the following occur: I choose not to answer THRIVE Score: 0 AUDIT C Alcohol Use Questionnaire (AUDIT-C) 1. How often do you have a drink containing alcohol?: 2-4 times a month 2. How many drinks containing alcohol do you have on a typical day when you are drinking?: 1 or 2 3. How often do you have six or more drinks on one occasion?: Never Total Score: 2 LEIGH-7 AMB Questionnaire LEIGH-7 Date LEIGH - 7 assessed: 12/23/24 Feeling nervous, anxious, or on edge: 2 = More than half the days Not being able to stop or control worryin = More than half the days Worrying too much about different things: 2 = More than half the days Trouble relaxin = More than half the days Being so restless that it is hard to sit still: 0 = Not at all Becoming easily annoyed or irritable: 1 = Several days Feeling afraid as if something awful might happen: 2 = More than half the days Total LEIGH-7 score (0-4 normal; 5-9 mild; 10-14 moderate; 15-21 severe): 11 Source: Developed by Drs. Jossue Gonzalez, Michell Templeton, Hitesh Bledsoe and colleagues, with an educational stacie from [employer]. LEIGH-7 Assessment Billing LEIGH-7 Assessment Tool: LEIGH-7 Assessment 73176 Review of Systems Const Denies chills, Denies fatigue, Denies fever(s), Denies headache(s) and Denies weakness Eyes Denies change in vision ENT Denies dizziness, Denies headache(s), Denies hearing loss, Denies nasal congestion, Denies sinus pain, Denies sinus pressure and Denies sore throat Card Denies chest pain, Denies lightheadedness, Denies dyspnea and Denies other (palpitations) Resp Denies cough, Denies dyspnea and Denies wheezing GI Denies abdominal pain, Denies melena, Denies hematochezia, Denies change in bowel habits, Denies dyspepsia and Denies nausea Denies hematuria and Denies dysuria Musc Denies abnormal gait, Denies myalgias, Denies arthralgias, Denies numbness and Denies tingling Skin/Breast Denies rash, Denies unusual bruising and Denies wounds Neuro Denies abnormal gait, Denies dizziness, Denies headache(s), Denies memory loss, Denies numbness, Denies Sensory deficit (Neuro), Denies tingling and Denies weakness Psych Reports anxiety and Denies memory loss Endo Denies cold intolerance, Denies fatigue, Denies heat intolerance, Denies polydipsia and Denies polyuria Jhony/Lymph Denies easy bleeding and Denies easy bruising Aller/Immun Denies wheezing Physical exam (Primary Care) Vital Signs: Last Vital Signs Temp 98.2 F 12/23/24 14:11 Pulse 94 12/23/24 14:11 Resp 14 12/23/24 14:11 BP 138/78 12/23/24 14:11 Pulse Ox 98 12/23/24 14:11 Oxygen Delivery Method Room Air 12/23/24 14:11 BMI result Body Mass Index 35.6 Tobacco/Smoking Status: Tobacco use Status Tobacco use date assessed 12/23/24 12/23/24 14:12 Patient Tobacco Use Status Never used Tobacco 12/23/24 14:11 e-Cigarette/Vaping Use Never Used 12/23/24 14:11 PHQ-9: PHQ-9 Score PHQ-9: Total score 4 12/23/24 14:12 Depression Screening Interpretation: Negative Thrive Assessment: Date of Thrive Assessment Date Thrive assessed 12/23/24 12/23/24 14:01 Currently or been in a relationship where the following occur: I choose not to answer Const General: no acute distress, well developed, alert and awake Nutritional Appearance: well nourished Orientation/consciousness: patient oriented x3 HENMT Head: Yes normocephalic and Yes atraumatic Ears: hearing grossly normal bilaterally and TM's normal bilaterally General nose exam: Normal external nose present and Normal nares present Mouth: Normal oral and palatal mucosa present and moist mucous membranes Teeth and gingiva: dentition normal Throat: Yes posterior oropharynx normal Eyes General: appearance normal, both eyes and all related structures Pupils: Equal, round and reactive pupils present and Pupil accommodation reflex normal EOM: EOMs intact bilaterally Neck Neck: Yes normal visual inspection, Yes no lymphadenopathy and Yes trachea midline Thyroid: Thyroid normal Carotids: no bruits Lymphatic: no lymphadenopathy noted Chest Chest palpation & inspection: normal inspection of the chest Resp Effort & Inspection: normal respiratory effort Auscultation: clear to auscultation bilaterally Cardio Rate: regular rate Rhythm: regular rhythm Heart sounds: S1 normal heart sound present, S2 normal heart sound present, no gallops, no murmurs and no rubs Bruits: no abdominal aortic bruits and no carotid bruits GI Palpation (GI): No Abdominal aortic bruit present, Soft to palpation, nontender, No hepatosplenomegaly present and No Rebound tenderness present Auscultation: normal bowel sounds General: Yes no CVA tenderness Back/Spine/Pelvis Back: no CVA tenderness Cervical Spine: cervical ROM normal and No Cervical spine tenderness Thoracic/Lumbar Spine: thoraco-lumbar ROM normal, No pain with thoraco-lumbar ROM, No thoracic spinal tenderness and No lumbar spinal tenderness Skin Lesions: no lesions Rashes: no rashes Trauma: no lacerations or abrasions Wounds: no wounds Nails: normal Neuro General: patient oriented x3 Cranial nerves: Yes Equal, round and reactive pupils present Cognition (Neuro): normal cognition Gait exam (Neuro): Normal gait present Motor exam (neuro): 5/5 motor strength present throughout Sensory Exam: No Sensory deficit (Neuro) Deep tendon reflexes (DTR's): Right patellar reflex intensity grade: 2+ and Left patellar reflex intensity grade: 2+ Extrem General: Yes normal to inspection and No edema Psych Appearance: grossly normal Affect: normal affect Attitude: cooperative Thought process: Normal thought process present Results AMB Hemoglobin A1c AMB Hemoglobin A1c 6.0 % Last Edit by María Etienne CMA on 12/23/24 14:19 Coding Level of Care Code Est Pt Level 3 (68106) Est Pt Prev Care 40-64y(82290) Diagnoses Adult general medical exam Z00.00 Anxiety F41.9 Hypertension I10 Diabetes E11.9 Additional Codes LEIGH-7 Assessment Billing - LEIGH-7 Assessment Tool: LEIGH-7 Assessment 85475 ([id number]) PHQ-9 - 50662 - PHQ-9 Billing: Yes ([id number]) Assessment & Plan Assessment & Plan (1) Adult general medical exam: Code(s): Z00.00 - Encounter for general adult medical examination without abnormal findin gs Category: Medical Plan: 49-year-old female presents for complete physical exam Encouraged healthy diet with active lifestyle and plenty of exercise (2) Anxiety: Code(s): F41.9 - Anxiety disorder, unspecified Category: Medical Plan: Increased anxiety as patient notes family stressors She has a friend who recommended her therapist and she is thinking about this. I recommended it as well. Continue bupropion Trial hydroxyzine PRN (3) Hypertension: Code(s): I10 - Essential (primary) hypertension Category: Medical Plan: Blood pressure mildly elevated above her baseline Continue losartan Elevation likely secondary to increased anxiety/stress (4) Diabetes: Code(s): E11.9 - Type 2 diabetes mellitus without complications Category: Medical Plan: A1c 6.0%. Good control. Goal is less than 7% Continue current medication Orders: Orders Comprehensive [place]. Panel Fast 12/18/24 Z00.00 - Encounter for general adult medical examination without abnormal findings Complete Blood Count Auto Diff 12/18/24 Z00.00 - Encounter for general adult medical examination without abnormal findings Lipid Panel 12/18/24 Z00.00 - Encounter for general adult medical examination without abnormal findings Microalbumin, Random (w Creat) 12/18/24 I10 - Essential (primary) hypertension TSH reflex Free T4 12/18/24 Z00.00 - Encounter for general adult medical examination without abnormal findings UA CC w/rflx Micro + Cult 12/18/24 Z00.00 - Encounter for general adult medical examination without abnormal findings AMB Hemoglobin A1c Today E11.9 - Type 2 diabetes mellitus without complicati ons, R73.01 - Impaired fasting glucose Medications: Changed From metformin 500 mg PO BID 180 tabs 0RF To metformin 500 mg PO ONCE From bupropion HCl 75 mg PO BID 30 days 60 tabs 1RF To bupropion HCl 75 mg PO ONCE From metoprolol succinate ER 25 mg PO BID 30 days 60 tabs 2RF To metoprolol succinate ER 25 mg PO ONCE
[2024-12-23 14:11] VITALS: BP 138/78; PULSE 94; RESP 14; TEMP 36.8; O2SAT 98; BMI 35.6
== END 2024-12-23 14:39 | disposition home or self-care (01) ==
LOC: HO.HMCFM 13:51
PROVIDERS: PCP Family Medicine; Visit Provider Family Medicine
DX: Z00.00 Encounter for general adult medical examination without abnormal findings (principal); E11.9 Type 2 diabetes mellitus without complications; I10 Essential (primary) hypertension; F41.9 Anxiety disorder, unspecified

== ENCOUNTER → 2024-12-23 13:50 | Outpatient (BNVA) | payer OTHER, SELFPAY | PROVIDERS: PCP Family Medicine; Visit Provider Family Medicine | DX: Z00.00 Encounter for general adult medical examination without abnormal findings (principal); I10 Essential (primary) hypertension; F41.9 Anxiety disorder, unspecified; E11.9 Type 2 diabetes mellitus without complications | CPT/HCPCS: 83036; 96127 ==